=== PATIENT | male | born 1955 | race Caucasian/White ===

== ENCOUNTER 2019-01-25 05:27 | Observation (INO) | payer BC ==
[~2019-01-25 05:27] MED LIST: Buffered Lidocaine 1% SYRIN* 1 ML/SYRINGE INTRADERM ONE
[2019-01-25] MEDS ORDERED: Sodium Citrate/Citric Acid* 15 ML UDC ONE (05:47)
[2019-01-25] MEDS ORDERED: ceFAZolin 1 GM in Dextrose (*) 1 GM/50 ML BAG IVPB ONE (05:47)
[2019-01-25] MEDS ORDERED: ceFAZolin 2 GM PREMIX in ORs 0 GM/0 ML BAG IVPB ONE (05:47)
[2019-01-25] MEDS ORDERED: Lactated Ringers 1000 ML Bag* 1,000 ML IV SCH ×2 (06:00→14:00)
[2019-01-25] MEDS ORDERED: Sodium Citrate/Citric Acid* 15 ML UDC PO ONE (06:00)
[2019-01-25 06:33] LABS: INR 1.06 (0.82-1.09)
[2019-01-25] MEDS ORDERED: Lidocaine 1% MPF wEPI 200,000* 30 ML SDV ONE (06:39)
[2019-01-25] MEDS ORDERED: Bacitracin INJECTION* 50,000 UNITS ONE ×2 (06:40→11:50)
[2019-01-25] MEDS ORDERED: Thrombin 5,000 UNITS* 1 APPLIC KIT - topical use - TOPICAL ONE (06:40)
[2019-01-25] MEDS ORDERED: fentaNYL* 50 MCG/ML 5 ML VIAL (250 MCG VIAL) ONE (07:21)
[2019-01-25] MEDS ORDERED: Lidocaine 2% PF * 5 ML VIAL ONE (07:21)
[2019-01-25] MEDS ORDERED: Propofol* 10 MG/ML 20 ML BTL ONE ×2 (07:21→08:26)
[2019-01-25] MEDS ORDERED: Rocuronium* 10 MG/ML VIAL ONE ×3 (07:21→10:49)
[2019-01-25] MEDS ORDERED: KETAMINE HCL* 50 MG/ML 10 ML VIAL ONE (08:44)
[2019-01-25] MEDS ORDERED: DiMENhydriNATE IV* 50 MG/ML VIAL IV PUSH PRN (09:01)
[2019-01-25] MEDS ORDERED: Acetaminophen IV 1GM/100ML * 1,000 MG/100 ML VIAL IVPB ONE (09:01)
[2019-01-25] MEDS ORDERED: Naloxone* 0.4 MG/ML 1 ML VIAL IV PRN (09:01)
[2019-01-25] MEDS ORDERED: fentaNYL* 50 MCG/ML 2 ML VIAL (100 MCG VIAL) IV PRN (09:01)
[2019-01-25] MEDS ORDERED: Sugammadex * 500 MG/5 ML VIAL IV PUSH ONE (12:20)
[2019-01-25] MEDS ORDERED: Ondansetron INJ* 2 MG/ML VIAL ONE (12:31)
[2019-01-25] MEDS ORDERED: ceFAZolin 2 GM PREMIX in ORs 2 GM/50 ML BAG IVPB ONE (13:02)
[2019-01-25] MEDS ORDERED: ceFAZolin 1 GM ADVAN(*) 1 GM ADDV.VIAL IVPB ONE (13:03)
[2019-01-25] MEDS ORDERED: ceFAZolin VIAL(*) VIAL ONE (13:08)
[2019-01-25] MEDS ORDERED: Magnesium Hydroxide LIQ* 30 ML UDC PO PRN (13:28)
[2019-01-25] MEDS ORDERED: Ondansetron INJ* 2 MG/ML VIAL IV PRN (13:28)
[2019-01-25] MEDS ORDERED: Diazepam TAB(*) 10 MG PO PRN (13:30)
[2019-01-25] MEDS ORDERED: Acetaminophen IV 1GM/100ML * 100 ML ONE (13:39)
[2019-01-25] MEDS: HYDROcodone/ACETAMIN 5-325 MG* 1 TAB PO PRN (16:12)
[2019-01-25] MEDS ORDERED: Acetaminophen TAB* 325 MG PO PRN (18:13)
--- NOTE | 2019-01-25 18:23 | OP ---
OPERATIVE REPORT: DATE OF OPERATION: 01/25/19 - Inpatient, room 353-01 DATE OF : 55 SURGEON: Khloe Maldonado MD HOME HEALTH BILLING SPECIALIST: MAREN Bean. The case was done with the assistance of a surgical PA because of the complexity of the case. ANESTHESIOLOGIST: Cirilo Roland DO ANESTHESIA: General. PRE-OP DIAGNOSIS: Degenerative disk disease and severe lumbar stenosis at L2 to S1. POST-OP DIAGNOSIS: Degenerative disk disease and severe lumbar stenosis at L2 to S1. OPERATIVE PROCEDURE: The patient underwent right-sided approach ipsi- contralateral laminectomies at L2-3, L3-4, L4-5 and L5-S1 with multilevel foraminotomies. ESTIMATED BLOOD LOSS: 100 cc. COMPLICATIONS: None. SUMMARY: The patient is a very pleasant 63-year-old gentleman with complaints of back pain radiating to the right lower extremity with neurogenic claudication with MRI findings consistent with multilevel degenerative disk disease and severe stenosis. He was offered the option of surgical intervention after failing conservative treatments. After explaining the expectations, limitations, possible complications of the procedure to the patient with complications including but not limited to bleeding, infection, risk of injury to adjacent structures, coma, paralysis, , need for additional procedures, anesthesia risks, stroke, blindness, cancer, instability , adjacent level disease, pseudoarthrosis, spinal fluid leak, hematoma formation , loss of bladder or bowel control, the patient was agreeable to proceed with surgery and informed consent was obtained. The patient understood that his condition may not improve and in fact may get worse after surgery and that he may need to have additional procedures in the future. He also understood that he may need a stabilization procedure if he develops any instability. The patient understood that operative plan may be modified according to intraoperative findings and conditions. He also understood that the procedure may be abandoned or done in more than one stages and that he may require prolonged ICU stay and prolonged hospitalization and prolonged rehabilitation. DESCRIPTION OF PROCEDURE: The patient was brought to the operating room and was placed under general anesthesia by the anesthesia team. He was carefully positioned prone on a Robin frame on a Marko table and all bony prominences were meticulously padded. His skin was prepped and draped in the standard fashion. After appropriate surgical pause and patient identification, a midline incision was marked over the L2 to S1 level with the assistance of intraoperative fluoroscopic imaging. The incision site was infiltrated with local anesthetic and #10 surgical blade was used to incise the skin. The incision was carried down to the dorsal fascia with Bovie cautery and self- retaining retractor was introduced further into the field. The dorsal fascia was divided in the right side over the midline with the use of Bovie cautery and the paraspinal musculature was elevated on the right side with the use of periosteal elevators and Bovie cautery. The incision was carried down to the lamina. The lamina and the right-sided facets were gently exposed paying attention not to disrupt the facet capsules. Self-retaining retractor was introduced further into the field and under microscopic magnification and after confirmation of appropriate surgical levels with intraoperative fluoroscopic imaging, laminectomies were performed at L5, L4, L3 and to the lower part of L2. High-speed drill was used as well as Kerrison punches. Ligamentum flavum was then gently removed and then right-sided foraminotomies were performed in all levels as well as left-sided foraminotomies. At the end of the procedure, the thecal sac as well as the nerve roots were found to be free of any pressure phenomenon. Significant amount of hypertrophied ligamentum flavum was encountered throughout the decompressive laminectomies levels. After confirmation of meticulous hemostasis and copious irrigation, and after meticulous inspection, the self-retaining retractor was removed from the field and the wound was closed over Ajay drain which was tunneled through a separate stab wound incision. A 0 interrupted Vicryl sutures were all used to approximate dorsal fascia while the subcutaneous tissue was approximated with 2- 0 inverted interrupted Vicryl suture. The skin was approximated with Dermabond. At the end of the procedure, all counts were reported to be correct. The patient remained hemodynamically stable throughout the case. The case was done with the assistance of a surgical PA because of the complexity of the case. I was present and scrubbed for the entirety of the case. [id number]/[facility] #: [id number] LORI
[2019-01-25] MEDS ORDERED: LORazepam TAB(*) 1 MG PO SCH (19:00)
--- NOTE | 2019-01-25 19:05 | CONS ---
CC: Dr. South; Dr. Maldonado* CONSULTATION REPORT: DATE OF CONSULT: 01/25/19 PRIMARY CARE PROVIDER: Dr. South. REASON FOR CONSULT: Evaluation of this patient for possibility of alcohol withdrawal in the future. CHIEF COMPLAINT: Back pain. HISTORY OF PRESENT ILLNESS: Ramiro Bunch is a 63-year-old male with history of chronic alcohol use, who is status post decompressive lumbar laminectomy performed by Dr. Maldonado. The patient stated that he never had gone through alcohol withdrawal before, but he has drank approximately 4 shots of heavy liquor a day for most of his life. He started drinking alcohol when he was 15 years old. He also has a history of hypertension. A request for consult postoperatively was placed to medicine service to evaluate for possibility of withdrawal in the future. PAST MEDICAL HISTORY: 1. History of lumbar stenosis as mentioned above. 2. History of hypertension. 3. History of depression. 4. History of anxiety. 5. Obstructive sleep apnea. The patient has not used his CPAP for the past 2 years. PAST SURGICAL HISTORY: 1. Status post right knee surgery in 2015. 2. 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 MEDICATIONS: Include: 1. Zoloft 100 mg daily. 2. OmegaXL twice daily for joint pain. 3. Amlodipine 5 mg daily. 4. Mag-Ox 400 mg 1 to 4 tablets a night for sleep. 5. Aleve 220 mg on a p.r.n. basis. 6. Lisinopril 40 mg daily. 7. Diazepam 10 mg up to 3 times a day for anxiety. ALLERGIES: No known drug allergies. FAMILY HISTORY: Positive for father with emphysema, prostate cancer, who at the age of 78 due to emphysema. Mother with history of pacemaker placement and COPD, due to stroke at the age of 78. SOCIAL HISTORY: The patient is . He denies any tobacco or drug use. He has drank alcohol ever since he turned 15. He never went through withdrawal and never needed to go to rehab. He drinks approximately 1.7 L of whiskey a week. REVIEW OF SYSTEMS: Please see history of present illness. The patient complains of mild postoperative pain in the lumbar region, otherwise unremarkable. Prior to the surgery, the patient stated that he has had problems with not being able to ambulate past several steps, all of a sudden his legs would get weak and he would have to hold onto something. I believe it is consistent with neurogenic claudication. PHYSICAL EXAM: Blood pressure of 131/40, heart rate of 82 and regular, respiratory rate 16, oxygen saturation 95% on room air, temperature 97.4. General: The patient is a very pleasant 63-year-old male, who is in no acute distress. Alert, awake, and oriented x3. HEENT: Head: Atraumatic, normocephalic. Eyes: Pupils are equal, reactive to light and accommodation. Oropharynx is clear. Mucosa moist. Neck: Supple. No JVD. No bruits bilaterally. Cardiovascular: Regular rate and rhythm. No murmur. Respiratory : Clear to auscultation bilaterally. Abdomen: Soft, nontender. Bowel sounds are present in all 4 quadrants. On evaluation of the back, the patient has his midline lumbar incision covered with postoperative dressings that were not removed. There is no evidence of surrounding hematoma or skin infection. Neuro Evaluation: Speech is clear. Cranial nerves II through XII are grossly intact. Motor strength is 5/5 bilaterally. Psychiatric Evaluation: Oriented x3 with no evidence of anxiety or depression. LABORATORY DATA: None. ASSESSMENT AND PLAN: 1. In regards to the patient's possibility of alcohol withdrawal, his last drink was 4 days ago. It is possible that he is going to go through withdrawal. He is going to be placed on alcohol withdrawal protocol with Ativan. I will also place the patient on thiamine and folate. 2. In regards to the patient's hypertension, I will recommend continuation of his current medications. Thank you very much for allowing our service to see your patient in consultation. We will sign off for now and we will see the patient on an as- needed basis. TIME SPENT: Approximately 55 minutes was spent on the patient's consultation. [id number]/[facility] #: [id number] LORI
[2019-01-26] MEDS: HYDROcodone/ACETAMIN 5-325 MG* 1 TAB PO PRN ×4 (06:46→23:23)
--- NOTE | 2019-01-26 09:06 | PN ---
Progress Note - Progress Note Date of Service: 01/26/19 SOAP: Subjective: 63 y/o male s/p bilateral L2 -S1 decompression POD#1, patient has been stable over night. His radicular pain has improved since, has been ambulating with out any issues. Currently has ALEXA drain that put out 150 ml over night and an additional 50 this morning. Patient reports that his pain has been well controlled and is tolerating oral food and liquids. Patient has no complaints at this time. Objective: Vital Signs - 12 hr Temp Pulse Resp BP Pulse Ox 01/26/19 08:00 95 01/26/19 07:52 98.2 F 72 18 140/67 89 01/26/19 06:46 18 01/26/19 04:42 98.1 F 68 17 139/64 92 01/26/19 02:04 98.5 F 78 16 137/58 91 01/25/19 23:18 98.0 F 79 17 124/54 95 01/25/19 21:15 18 General: Patient comfortable in bed, mood pleasant. Neuro GCS: 15, CN II - XII grossly intact, Senation intact throughout with light touch, Extremity motor strength intact 5/5 in all extremities. Derm. surgical site C/D/I drain ALEXA drain intact. Assessment: 63 y/o male s/p L2- S1 decompression, patient is doing after surgery, drain is significant out put at this time, so not able D/C. Plan: 1) continue monitor and document drain output. 2) Pain control as needed 3) Continue to work with PT/OT 4) D/C melanie.
[2019-01-26] MEDS: Thiamine TAB* 100 MG TAB PO SCH (09:08)
[2019-01-26] MEDS: Folic Acid TAB* 1 MG PO SCH (09:08)
[2019-01-26] MEDS: amLODIPine TAB* 5 MG PO SCH (09:08)
[2019-01-26] MEDS: Lisinopril TAB* 10 MG PO SCH (09:08)
[2019-01-26] MEDS: Multivitamins/Minerals TAB PO SCH (09:08)
[2019-01-26] MEDS: Sertraline* 100 MG TAB PO SCH (09:08)
[2019-01-27] MEDS: HYDROcodone/ACETAMIN 5-325 MG* 1 TAB PO PRN ×3 (04:44→13:47)
[2019-01-27] MEDS: Thiamine TAB* 100 MG TAB PO SCH (08:53)
[2019-01-27] MEDS: Multivitamins/Minerals TAB PO SCH (08:53)
[2019-01-27] MEDS: Sertraline* 100 MG TAB PO SCH (08:53)
[2019-01-27] MEDS: Lisinopril TAB* 10 MG PO SCH (08:53)
[2019-01-27] MEDS: Folic Acid TAB* 1 MG PO SCH (08:54)
[2019-01-27] MEDS: amLODIPine TAB* 5 MG PO SCH (08:54)
--- NOTE | 2019-01-27 09:20 | PN ---
Progress Note - Progress Note Date of Service: 01/27/19 SOAP: Subjective: [S/p lumbar decompression, POD #2 Feeling well this morning. Was able to get restful sleep last night Ambulating independently without difficulty Pain well controlled with PO medication Denies headache, nausea Eating and drinking well ] Objective: [ Vital Signs: Temp Pulse Resp BP Pulse Ox 98.0 F 68 16 124/54 90 01/27/19 07:24 01/27/19 07:24 01/27/19 08:54 01/27/19 07:24 01/27/19 07:24 General: Sitting up in chair, NAD Neuro: Motor and sensory intact Incision: Intact, no swelling. Mild ecchymosis at drain site. Drain continues to function well and is left in place. Wound drain output 01/25/19 01/26/19 01/26/19 21:10 02:08 08:17 Output, ALEXA #1 100 30 50 01/26/19 01/26/19 01/26/19 12:00 14:00 19:06 Output, ALEXA #1 50 10 30 01/26/19 01/27/19 23:15 05:22 Output, ALEXA #1 20 20 Laboratory Tests 01/25/19 06:00 INR (Anticoag Therapy) 1.06 ] Assessment: [Satisfactory post-op. Drain continues to collect large volume, requires further monitoring. ] Plan: [1.Continue to monitor drain output 2. Likely DC home tomorrow 3. Labs ordered]
[2019-01-27 11:04] LABS: Hematocrit 39 % (42-52); Hemoglobin 12.8 g/dL (14.0-18.0); Mean Corpuscular HGB Conc 33 g/dL (31-36); Mean Corpuscular Hemoglobin 34 pg (27-31); Mean Corpuscular Volume 104 fL (80-94); Mean Platelet Volume 10.7 fL (7.4-10.4); Platelet Count 156 10^3/uL (150-450); Red Blood Count 3.72 10^6 /uL (4.18-5.48); Red Cell Distribution Width 14 % (10.5-15); White Blood Count 15.9 10^3/uL (3.5-10.8)
[2019-01-27 11:09] LABS: INR 1.28 (0.82-1.09)
[2019-01-27 11:38] LABS: ABS Basophils 0.1 10^3/ul (0-0.2); ABS Eosinophils 0.1 10^3/ul (0-0.6); ABS Monocytes 3.4 10^3/ul (0-0.8); ABS Neutrophils 9.4 10^3/ul (1.5-7.7); Eosinophil % 0.4 %; Large Platelets Present; Lymphocyte % 18.6 %; Nucleated Red Blood Cells % 0.1
[2019-01-27 11:44] VITALS: BP 108/48
== END 2019-01-27 16:20 | disposition home or self-care (01) ==
LOC: OR 05:27 → UNDOADMOB 13:28 → SSU 13:28 → OBSVTOIN 01-27 10:01 → INTOOBSV 01-27 10:01 → UNDODISOB 01-27 16:20
PROVIDERS: ADMIT Neurological Surgery; ATTEND Neurological Surgery
DX: M51.36 Other intervertebral disc degeneration, lumbar region (principal); M48.061 Spinal stenosis, lumbar region without neurogenic claudication; I10 Essential (primary) hypertension; M54.5 Low back pain; R73.03 Prediabetes; E66.01 Morbid (severe) obesity due to excess calories; F43.21 Adjustment disorder with depressed mood; R73.01 Impaired fasting glucose
CPT/HCPCS: 36415; 76000; 85025; 85610; 96365; 96366; 96375; A9270-GY; G0378; J0690; J2001; J2405; J2704; J3010

== ENCOUNTER 2019-01-28 00:08 | Observation (INO) | payer BC ==
--- OUTSIDE RECORDS SUMMARY | 2019-01-28 00:31 | XMS REPORT | Continuity of Care Document ---
:1955 External Reference #:[id number] Author Name Mara Hilliard Care Team Providers Name Role Phone HCP/LW on file Primary Care Physician Unavailable Payers Date Identification Numbers Payment Provider Subscriber Effective: Policy Number: [id number] [facility] Ind/Ppo/Hmo/Pos Ramiro Bunch 2017 Group Name: Gage Vidal [address] [address] PayID: [id number] [id number] Advance Directives Description No Information Available Problems Active Problems Provider Date Essential hypertension Juan Chun M.D. Onset: 07/22/2015 Adjustment disorder with depressed mood Juan Cuhn M.D. Onset: 02/01 Note: divorce and of mo Overweight Juan Chun M.D. Onset: 02/02/2016 Generalized anxiety disorder Juan Chun M.D. Onset: 11/11/2016 Sleep apnea Juan Chun M.D. Onset: 11/11/2016 Posttraumatic stress disorder [facility] D.O. 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O. Tablets [place] XL twice daily for Unknown 01/03/2019 joint pain Amlodipine Besylate take 1 tablet by 90tabs I10 [facility], 02/08/2018 mouth once daily D.O. 5mg Tablets for high blood pressure Magox 400 1-4 tablets every 360tabs [facility] [place], 01/02/2018 night at bedtime D.O. 400(241.3mg) mg as directed Tablets Aleve as directed, as Unknown 01/01/2018 220mg Tablets needed Lisinopril take one tablet 90tabs [facility] [place], 02/01/2016 40mg by mouth every D.O. Tablets morning for high blood pressure Diazepam take 1 tablet by 90tabs F41.1 [facility], 02/01/2016 10mg Tablets mouth 3 To 4 D.O. Times Daily if needed History Medications Metoprolol Tartrate take 1 tablet by 90tabs I10 Theron Carrillo, 2017 - mouth every M.D. 02/08/2018 25mg Tablets morning Magox 400 1-4 tablets 360tabs [facility] [place], 06/29/2017 - 400(241.3mg) every night at D.O. 01/01/2018 mg Tablets bedtime as directed Triamcinolone apply to 30gm L91.8 Juan Hansen 05/03/2016 - Acetonide affected area Bryce Chun 06/22/2017 0.5% Cream three times a day only if needed Imiquimod apply to Unknown 05/02/2016 - 5% Cream affected area 05/03/2016 every other day leave on 6-10 hours Oxycodone-Acetaminoph 1-2 every 4 Unknown 02/01/2016 - en hours as needed 05/02/2016 5-325mg Tablets severe pain code d Sertraline HCL take 1 tablet by janelle RichardsNii luo, 02/01/2016 - 50mg mouth once daily D.O. 01/04/2019 Tablets Immunizations CPT Code Status Date Vaccine Lot # [id number] Given 03/13/2018 Shingrix Zoster (Shingles) Vaccine (HZV) [id number] Recomb,Subnit,Adjuvanted 07372 Given 01/02/2018 Shingrix Zoster (Shingles) Vaccine (HZV) [id number] Recomb,Subnit,Adjuvanted 48380 Given 06/23/2017 Influenza Virus Vaccine, Quadrivalent, Split, [id number] Preservative Free 23658 Given 08/03/2016 Influenza Virus Vaccine, Quadrivalent, Split, [id number] Preservative Free 54439 Given 12/22/2011 Tetanus diptheria Immunization Vital Signs Date Vital Result Comment 01/04/2019 2:31pm BP Systolic 128 mmHg BP Diastolic 80 mmHg Heart Rate 70 /min O2 % BldC Oximetry 95 % Body Temperature 98.1 F Height 69 inches 5'9" Weight 331.00 lb BMI (Body Mass Index) 48.9 kg/m2 03/13/2018 1:48pm Weight 336.00 lb 02/08/2018 2:22pm BP Systolic 138 mmHg thigh cuff BP Diastolic 84 mmHg thigh cuff Height 69 inches 5'9" Weight 339.00 lb BMI (Body Mass Index) 50.1 kg/m2 01/02/2018 11:20am BP Systolic 140 mmHg BP Diastolic 80 mmHg Weight 339.00 lb w/sneakers 09/23/2017 4:34pm BP Systolic 155 mmHg BP Diastolic 98 mmHg Weight 336.00 lb with boots 06/23/2017 10:07am BP Systolic 152 mmHg BP Diastolic 90 mmHg Height 69 inches 5'9" Weight 326.00 lb BMI (Body Mass Index) 48.1 kg/m2 02/21/2017 11:14am BP Systolic 140 mmHg BP Diastolic 84 mmHg Heart Rate 70 /min rrr Respiratory Rate 16 /min Weight 320.00 lb 11/11/2016 1:14pm BP Systolic 150 mmHg BP Diastolic 92 mmHg Heart Rate 80 /min Respiratory Rate 16 /min Weight 304.00 lb 08/03/2016 1:40pm BP Systolic 138 mmHg BP Diastolic 95 mmHg Height 69.5 inches 5'9.50" with shoes Weight 325.00 lb with shoes BMI (Body Mass Index) 47.3 kg/m2 05/03/2016 10:10am BP Systolic 132 mmHg BP Diastolic 72 mmHg Heart Rate 80 /min Weight 320.00 lb 02/02/2016 3:32pm BP Systolic 138 mmHg BP Diastolic 82 mmHg Height 69.5 inches 5'9.50" Weight 314.00 lb with flip flops BMI (Body Mass Index) 45.7 kg/m2 Results Test Date Facility Test Result H/L Range Note Laboratory test 01/04/2019 In House Hemoglobin A1c 6.0 finding Laboratory test 12/15/2018 [facility] PSA Diagnostic 0.675 ng/mL N 0- 4.0 finding [phone] Creatinine 12/15/2018 [facility] Creatinine 0.87 mg/dL N 0.67-1.17 [phone] Egfr Non- 88.6 >60 Egfr 107.2 >60 1 Laboratory test 12/15/2018 [facility] Blood Urea 25 mg/dL High 6-24 finding [phone] Nitrogen BUN Laboratory test 02/08/2018 [facility] Magnesium 1.9 mg/dL N 1.9-2.7 finding [phone] Comp Metabolic 02/08/2018 [facility] Sodium 136 mmol/L Low 139-145 Panel [phone] Chloride 102 mmol/L N 101-111 Co2 Carbon Dioxide 29 mmol/L N 22-32 Glucose 106 mg/dL High 70-100 Blood Urea Nitrogen 18 mg/dL N 6-24 Creatinine 0.96 mg/dL N 0.67-1.17 BUN/Creatinine Ratio 18.8 N 8-20 Calcium 9.4 mg/dL N 8.6-10.3 Total Protein 7.2 g/dL N 6.4-8.9 Albumin 4.0 g/dL N 3.2-5.2 Globulin 3.2 g/dL N 2-4 Albumin/Globulin Ratio 1.3 N 1-3 Total Bilirubin 0.50 mg/dL N 0.2-1.0 Alkaline Phosphatase 92 U/L N 34-104 Alt 113 U/L High 7-52 Ast 137 U/L High 13-39 Egfr Non- 79.4 >60 Egfr 102.1 >60 2 Potassium 5.4 mmol/L High 3.5-5.0 Anion Gap 5 mmol/L N 2-11 Laboratory test 01/02/2018 [facility] Magnesium 1.8 mg/dL Low 1.9- 2.7 3 finding [phone] CBC Auto Diff 01/02/2018 [facility] White Blood 6.3 10^3/uL N 3.5- 10.8 [phone] Count Red Blood Count 4.23 10^6/uL N 4.0-5.4 Hemoglobin 15.1 g/dL N 14.0-18.0 Hematocrit 44 % N 42-52 Mean Corpuscular Volume 105 fL High 80-94 Mean Corpuscular Hemoglobin 36 pg High 27-31 Mean Corpuscular HGB Conc 34 g/dL N 31-36 Red Cell Distribution Width 15 % N 10.5-15 Platelet Count 181 10^3/uL N 150-450 Mean Platelet Volume 11.1 um3 High 7.4-10.4 Large Platelets Present Abs Neutrophils 2.9 10^3/uL N 1.5-7.7 Abs Lymphocytes 2.1 10^3/uL N 1.0-4.8 Abs Monocytes 1.0 10^3/uL High 0-0.8 Abs Eosinophils 0.2 10^3/uL N 0-0.6 Abs Basophils 0 10^3/uL N 0-0.2 Abs Nucleated RBC 0 10^3/uL Granulocyte % 46.3 % N 38-83 Lymphocyte % 33.0 % N 25-47 Monocyte % 16.5 % High 0-7 Eosinophil % 3.8 % N 0-6 Basophil % 0.4 % N 0-2 Nucleated Red Blood Cells % 0.1 Comp Metabolic Panel 01/02/2018 [facility] Sodium 137 mmol/L Low 139- 145 [phone] Chloride 102 mmol/L N 101-111 Co2 Carbon Dioxide 28 mmol/L N 22-32 Glucose 130 mg/dL High 70-100 Blood Urea Nitrogen 14 mg/dL N 6-24 Creatinine 1.03 mg/dL N 0.67-1.17 BUN/Creatinine Ratio 13.6 N 8-20 Calcium 9.2 mg/dL N 8.6-10.3 Total Protein 7.3 g/dL N 6.4-8.9 Albumin 4.1 g/dL N 3.2-5.2 Globulin 3.2 g/dL N 2-4 Albumin/Globulin Ratio 1.3 N 1-3 Total Bilirubin 0.40 mg/dL N 0.2-1.0 Alkaline Phosphatase 93 U/L N 34-104 Alt 116 U/L High 7-52 Ast 135 U/L High 13-39 Egfr Non- 73.2 >60 Egfr 94.1 >60 4 Potassium 5.4 mmol/L High 3.5-5.0 Anion Gap 7 mmol/L N 2-11 Laboratory test 01/02/2018 [facility] TSH (Thyroid Stim 2.65 mcIU/mL N 0.34-5.60 5 finding [phone] Horm) Lipid Profile 01/02/2018 [facility] Triglycerides 163 mg/dL 6 (Trig/Chol/HDL) [phone] Cholesterol 277 mg/dL 7 HDL Cholesterol 52.5 mg/dL 8 LDL Cholesterol 192 mg/dL 9 Laboratory test 01/02/2018 [facility] Vitamin B12 661 pg/mL N 180- 375 10 finding [phone] Cell Morphology 01/02/2018 [facility] Macrocytosis 1+ [phone] Laboratory test 09/23/2017 In House Hemoglobin A1c 6.0 finding Glucose Quantitative 97 Cell Morphology 06/23/2017 [facility] Platelet Morphology Large N [phone] Macrocytosis 1+ N Laboratory test 06/23/2017 [facility] TSH (Thyroid 2.78 mcIU/mL N 0.34-5.60 finding [phone] Stim Horm) Vitamin B12 457 pg/mL N 180-657 11 Vitamin D Total 25(Oh) 32.9 ng/mL N 20-50 Comp Metabolic Panel 06/23/2017 [facility] Sodium 139 mmol/L N 133- 145 [phone] Potassium 4.2 mmol/L N 3.5-5.0 Chloride 107 mmol/L N 101-111 Co2 Carbon Dioxide 26 mmol/L N 22-32 Anion Gap 6 mmol/L N 2-11 Glucose 123 mg/dL High 70-100 Blood Urea Nitrogen 12 mg/dL N 6-24 Creatinine 0.79 mg/dL N 0.67-1.17 BUN/Creatinine Ratio 15.2 N 8-20 Calcium 8.7 mg/dL N 8.6-10.3 Total Protein 6.6 g/dL N 6.4-8.9 Albumin 3.7 g/dL N 3.2-5.2 Globulin 2.9 g/dL N 2-4 Albumin/Globulin Ratio 1.3 N 1-3 Total Bilirubin 0.30 mg/dL N 0.2-1.0 Alkaline Phosphatase 82 U/L N 34-104 Alt 57 U/L High 7-52 Ast 69 U/L High 13-39 Egfr Non- 99.7 N >60 Egfr 128.2 N >60 12 CBC Auto Diff 06/23/2017 [facility] White Blood Count 6.3 10^3/uL N 3.5-10.8 [phone] Red Blood Count 3.87 10^6/uL Low 4.0-5.4 Hemoglobin 13.7 g/dL Low 14.0-18.0 Hematocrit 41 % Low 42-52 Mean Corpuscular Volume 107 fL High 80-94 Mean Corpuscular Hemoglobin 36 pg High 27-31 Mean Corpuscular HGB Conc 33 g/dL N 31-36 Red Cell Distribution Width 14 % N 10.5-15 Platelet Count 229 10^3/uL N 150-450 Mean Platelet Volume 10 um3 N 7.4-10.4 Abs Neutrophils 2.6 10^3/uL N 1.5-7.7 Abs Lymphocytes 2.1 10^3/uL N 1.0-4.8 Abs Monocytes 1.3 10^3/uL High 0-0.8 Abs Eosinophils 0.2 10^3/uL N 0-0.6 Abs Basophils 0.1 10^3/uL N 0-0.2 Abs Nucleated RBC 0.01 10^3/uL N Granulocyte % 41.3 % N 38-83 Lymphocyte % 33.1 % N 25-47 Monocyte % 20.2 % High 1-9 Eosinophil % 3.3 % N 0-6 Basophil % 2.1 % High 0-2 Nucleated Red Blood Cells % 0.1 N Laboratory test finding 06/23/2017 [facility] Magnesium 1.7 mg/dL Low 1.9-2.7 [phone] Urine Micro Inhouse 02/21/2017 In House Ua WBC - 13 Ua RBC - Ua Casts - Ua Epi 0-1 Ua Other - Ua Glucose - Ua Bilirubin - Ua Ketones - Ua Specific Pella 1.010 Ua Blood - Ua PH 6.0 Ua Protein - Ua Urobilinogen - Ua Nitrite - Ua Leukocytes - 1 Because ethnic data is not always readily available, this report includes an eGFR for both -Americans and non- Americans. The National Kidney Disease Education Program (NKDEP) does not endorse the use of the MDRD equation for patients that are not between the ages of 18 and 70, are , have extremes of body size, muscle mass, or nutritional status, or are non- or non-. According to the National Kidney Foundation, irrespective of diagnosis, the stage of the disease is based on the level of kidney function: Stage Description GFR(mL/min/1.73 m(2)) 1 Kidney damage with normal or decreased GFR 90 2 Kidney damage with mild decrease in GFR 60-89 3 Moderate decrease in GFR 30-59 4 Severe decrease in GFR 15-29 5 Kidney failure <15 (or dialysis) 2 Because ethnic data is not always readily available, this report includes an eGFR for both -Americans and non- Americans. The National Kidney Disease Education Program (NKDEP) does not endorse the use of the MDRD equation for patients that are not between the ages of 18 and 70, are , have extremes of body size, muscle mass, or nutritional status, or are non- or non-. According to the National Kidney Foundation, irrespective of diagnosis, the stage of the disease is based on the level of kidney function: Stage Description GFR(mL/min/1.73 m(2)) 1 Kidney damage with normal or decreased GFR 90 2 Kidney damage with mild decrease in GFR 60-89 3 Moderate decrease in GFR 30-59 4 Severe decrease in GFR 15-29 5 Kidney failure <15 (or dialysis) 3 FASTING 12 HOUR 4 Because ethnic data is not always readily available, this report includes an eGFR for both -Americans and non- Americans. The National Kidney Disease Education Program (NKDEP) does not endorse the use of the MDRD equation for patients that are not between the ages of 18 and 70, are , have extremes of body size, muscle mass, or nutritional status, or are non- or non-. According to the National Kidney Foundation, irrespective of diagnosis, the stage of the disease is based on the level of kidney function: Stage Description GFR(mL/min/1.73 m(2)) 1 Kidney damage with normal or decreased GFR 90 2 Kidney damage with mild decrease in GFR 60-89 3 Moderate decrease in GFR 30-59 4 Severe decrease in GFR 15-29 5 Kidney failure <15 (or dialysis) 5 FASTING 12 HOUR 6 Desirable: <150 Borderline High: 150-199 High: 200-499 Very High: >500 7 Desirable: <200 Borderline High: 200-239 High: >239 8 Low: <40 Desirable: 40-60 High: >60 9 Desirable: <100 Near Optimal: 100-129 Borderline High: 130-159 High: 160-189 Very High: >189 10 Normal Range 180 to 914 Indeterminate Range 145 to 180 Deficient Range <145 11 Normal Range 180 to 914 Indeterminate Range 145 to 180 Deficient Range <145 12 Because ethnic data is not always readily available, this report includes an eGFR for both -Americans and non- Americans. The National Kidney Disease Education Program (NKDEP) does not endorse the use of the MDRD equation for patients that are not between the ages of 18 and 70, are , have extremes of body size, muscle mass, or nutritional status, or are non- or non-. According to the National Kidney Foundation, irrespective of diagnosis, the stage of the disease is based on the level of kidney function: Stage Description GFR(mL/min/1.73 m(2)) 1 Kidney damage with normal or decreased GFR 90 2 Kidney damage with mild decrease in GFR 60-89 3 Moderate decrease in GFR 30-59 4 Severe decrease in GFR 15-29 5 Kidney failure <15 (or dialysis) 13 void, clear, gold Procedures Date Code Description Status 01/04/2019 64957 Electrocardiogram Complete Completed 09/19/2014 [id number] Colonoscopy Completed Encounters Type Date Location Provider Dx Diagnosis Office Visit 01/04/2019 Main Office [facility] [place], I10 Essential (primary ) 2:30p D.O. hypertension M54.5 Low back pain R73.03 Prediabetes E66.01 Morbid (severe) obesity due to excess calories F41.1 Generalized anxiety disorder Z01.818 Encounter for other preprocedural examination F43.12 Post-traumatic stress disorder, chronic F43.21 Adjustment disorder with depressed mood R73.01 Impaired fasting glucose Z63.79 Other stressful life events affecting family and household Office Visit 02/08/2018 2:15p Main Office [facility] [place], I10 Essential ( primary) D.O. hypertension M54.5 Low back pain E66.01 Morbid (severe) obesity due to excess calories F41.1 Generalized anxiety disorder R73.03 Prediabetes Z68.43 Body mass index (BMI) 50-59.9 , adult Office Visit 01/02/2018 11:00a Main Office [facility] [place], I10 Essential ( primary) D.O. hypertension M54.5 Low back pain E66.01 Morbid (severe) obesity due to excess calories F41.1 Generalized anxiety disorder F43.12 Post-traumatic stress disorder, chronic F43.21 Adjustment disorder with depressed mood R73.03 Prediabetes Z23 Encounter for immunization Z41.8 Encntr for oth proc for purpose oth than [facility] Z68.42 Body mass index (BMI) 45.0-49.9, adult Office Visit 09/23/2017 4:20p Main Office Thor Modi M54.5 Low back pain I10 Essential (primary) hypertension R73.01 Impaired fasting glucose R73.03 Prediabetes Z63.79 Other stressful life events affecting family and household Z79.899 Other fdc (current) drug therapy Office Visit 06/23/2017 10:00a Main Office [place] [place], R23.8 Other skin D.O. changes I10 Essential (primary) hypertension E66.3 Overweight F41.1 Generalized anxiety disorder F43.12 Post-traumatic stress disorder, chronic Z41.8 Encntr for oth proc for purpose oth than [facility] Z23 Encounter for immunization Z68.42 Body mass index (BMI) 45.0-49.9, adult Office Visit 02/21/2017 11:15a Main Office Juan Hansen I10 Essential ( primary) Bryce Chun hypertension E66.3 Overweight L91.8 Other hypertrophic disorders of the skin F41.1 Generalized anxiety disorder Z68.41 Body mass index (BMI) 40.0-44.9, adult Office Visit 11/11/2016 1:05p Main Office Juan Chun M.D. E66.3 Overweight F41.1 Generalized anxiety disorder I10 Essential (primary) hypertension G47.36 Sleep related hypoventilation in conditions classd elswhr N40.0 Benign prostatic hyperplasia without lower urinry tract symp Z68.41 Body mass index (BMI) 40.0-44.9, adult Office Visit 08/03/2016 1:30p Main Office Juan Chun M.D. E66.3 Overweight Z68.41 Body mass index (BMI) 40.0-44.9, adult F41.1 Generalized anxiety disorder I10 Essential (primary) hypertension Z23 Encounter for immunization Office Visit 05/03/2016 10:00a Main Office Juan Hansen L91.8 Other hypertrophic Bryce Chun disorders of the skin I10 Essential (primary) hypertension E66.3 Overweight F41.1 Generalized anxiety disorder Z68.42 Body mass index (BMI) 45.0-49.9, adult Office Visit 02/02/2016 3:45p Main Office Juan Chun M.D. E66.3 Overweight I10 Essential (primary) hypertension F43.21 Adjustment disorder with depressed mood Z68.42 Body mass index (BMI) 45.0-49.9, adult Plan of Treatment Future Appointment(s):07/18/2019 2:30 pm - [facility] D.O. at Main [id number]/04/2019 - [facility] [place] D.O.I10 Essential (primary) hypertensionFollow up:6 months recheck HTN, prediabetes, weight lossM54.5 Low back painR73.03 HzywnblgksgK71.01 Morbid (severe) obesity due to excess udulqfthS66.1 Generalized anxiety domprmtgS59.818 Encounter for other preprocedural gaqgkdraypsQ48.12 Post-traumatic stress disorder, dfikhpsA76.21 Adjustment disorder with depressed moodR73.01 Impaired fasting mkdvwzmJ12.79 Other stressful life events affecting family and household
--- OUTSIDE RECORDS SUMMARY | 2019-01-28 00:31 | XMS REPORT | Continuity of Care Document ---
:1955 External Reference #:[id number] Author Name Nii South D.O. Address [address] [place] [id number] Care Team Providers Name Role Phone HCP/LW on file Primary Care Physician Unavailable Payers Date Identification Numbers Payment Provider Subscriber Effective: Policy Number: [id number] [employer] Ind/Ppo/Hmo/Pos Ramiro Becerra Bunch 2017 Group Name: [employer] [address] [address] PayID: [id number] [place] [address] Advance Directives Description No Information Available Problems Active Problems Provider Date Essential hypertension Juan Chun M.D. Onset: 07/22/2015 Adjustment disorder with depressed mood Juan Chun M.D. 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 Tobacco Use Start: Unknown Never Smoked Cigarettes ETOH Use Current Alcohol Use: Whisky - 1.75 Daily liter/week - 60 drinks Recreational Drug Use Never Used Drugs Tobacco Use Start: Unknown Non Smoker Smoking Status Reviewed: 01/04/19 Non Smoker Sun Exposure Does not use sunscreen Contraceptive Methods Vasectomy Age 1st Kendrick 15 Years Old # [facility] Partners 5-10 Allergies, Adverse Reactions, Alerts Description No Known Drug Allergies Medications Active Medications SIG Qnty Indications Ordering Provider Date Sertraline HCL 1 by mouth every 90tabs Nii South, 01/04/2019 100mg day D.O. Tablets [place] XL twice daily for Unknown 01/03/2019 joint [...] pressure Diazepam take 1 tablet by 90tabs Nii South, 02/01/2016 10mg Tablets mouth 3 To 4 D.O. Times Daily if needed maximum daily dose of 4 History Medications Metoprolol Tartrate take 1 tablet [...] d Sertraline HCL take 1 tablet by Nii Wilson, 02/01/2016 - 50mg mouth once daily D.O. 01/04/2019 Tablets Immunizations CPT Code Status Date Vaccine Lot # [id number] Given 03/13/2018 Shingrix Zoster (Shingles) Vaccine (HZV) [id number] Recomb,Subnit,Adjuvanted 25446 Given 01/02/2018 Shingrix Zoster (Shingles) Vaccine (HZV) [id number] Recomb,Subnit,Adjuvanted 41571 Given 06/23/2017 Influenza Virus Vaccine, Quadrivalent, Split, [id number] Preservative Free 37238 Given 08/03/2016 Influenza Virus Vaccine, Quadrivalent, Split, [id number] Preservative Free 47348 Given 12/22/2011 Tetanus diptheria Immunization Vital Signs [...] Date Facility Test Result H/L Range Note Comp Metabolic Panel 01/09/2019 [facility] Sodium 139 mmol/L N 135- 145 [phone] Potassium 4.2 mmol/L N 3.5-5.0 Chloride 105 mmol/L N 101-111 Co2 Carbon Dioxide 28 mmol/L N 22-32 Anion Gap 6 mmol/L N 2-11 Glucose 157 mg/dL High 70-100 Blood Urea Nitrogen 20 mg/dL N 6-24 Creatinine 0.88 mg/dL N 0.67-1.17 BUN/Creatinine Ratio 22.7 High 8-20 Calcium 9.3 mg/dL N 8.6-10.3 Total Protein 6.7 g/dL N 6.4-8.9 Albumin 3.9 g/dL N 3.2-5.2 Globulin 2.8 g/dL N 2-4 Albumin/Globulin Ratio 1.4 N 1-3 Total Bilirubin 0.70 mg/dL N 0.2-1.0 Alkaline Phosphatase 88 U/L N 34-104 Alt 77 U/L High 7-52 Ast 69 U/L High 13-39 Egfr Non- 87.5 >60 Egfr 105.8 >60 1 CBC Auto Diff 01/09/2019 [facility] White Blood Count 7.4 10^3/uL N 3.5-10.8 [phone] Red Blood Count 4.37 10^6/uL N 4.18-5.48 Hemoglobin 15.3 g/dL N 14.0-18.0 Hematocrit 45 % N 36-46 Mean Corpuscular Volume 103 fL High 80-94 Mean Corpuscular Hemoglobin 35 pg High 27-31 Mean Corpuscular HGB Conc 34 g/dL N 31-36 Red Cell Distribution Width 14 % N 10.5-15 Platelet Count 192 10^3/uL N 150-450 Mean Platelet Volume 10.8 fL High 7.4-10.4 Abs Neutrophils 3.2 10^3/uL N 1.5-7.7 Abs Lymphocytes 2.4 10^3/uL N 1.0-4.8 Abs Monocytes 1.4 10^3/uL High 0-0.8 Abs Eosinophils 0.3 10^3/uL N 0-0.6 Abs Basophils 0.1 10^3/uL N 0-0.2 Abs Nucleated RBC 0 10^3/uL Granulocyte % 43.2 % Lymphocyte % 32.9 % Monocyte % 18.6 % Eosinophil % 3.9 % Basophil % 1.4 % Nucleated Red Blood Cells % 0 Laboratory test 01/09/2019 [facility] TSH (Thyroid 2.42 mcIU/mL N 0.34-5.60 finding [phone] Stim Horm) Vitamin B12 346 pg/mL N 180-914 2 Vitamin B1 WB <pending> Magnesium 1.9 mg/dL N 1.9-2.7 Laboratory test 01/04/2019 In House Hemoglobin A1c 6.0 finding Laboratory test 12/15/2018 [facility] Blood Urea 25 mg/dL High 6-24 finding [phone] Nitrogen BUN Creatinine 12/15/2018 [facility] Creatinine 0.87 mg/dL N 0.67-1. [phone] Egfr Non- 88.6 >60 Egfr 107.2 >60 3 Laboratory test 12/15/2018 [facility] PSA Diagnostic 0.675 ng/mL N 0- 4.0 finding [phone] Laboratory test 02/08/2018 [facility] Magnesium 1.9 mg/dL N 1.9-2.7 finding [phone] Comp Metabolic 02/08/2018 [facility] Sodium 136 mmol/L Low 139-145 Panel [phone] Chloride 102 mmol/L N 101-111 Co2 Carbon [...] Egfr Non- 79.4 >60 Egfr 102.1 >60 4 Potassium 5.4 mmol/L High 3.5-5.0 Anion Gap 5 mmol/L N 2-11 Cell Morphology 01/02/2018 [facility] Macrocytosis 1+ [phone] Laboratory test finding 01/02/2018 [facility] Vitamin B12 661 pg/mL N 180-914 5 [phone] Lipid Profile 01/02/2018 [facility] Triglycerides 163 mg/dL 6 (Trig/Chol/HDL) [phone] Cholesterol 277 mg/dL 7 HDL Cholesterol 52.5 mg/dL 8 LDL Cholesterol 192 mg/dL 9 Laboratory test 01/02/2018 [facility] TSH (Thyroid 2.65 mcIU/mL N 0.34-5.60 10 finding [phone] Stim Horm) Comp Metabolic 01/02/2018 [facility] Sodium 137 mmol/L Low 139-145 Panel [phone] Chloride 102 mmol/L N 101-111 Co2 Carbon [...] Egfr Non- 73.2 >60 Egfr 94.1 >60 11 Potassium 5.4 mmol/L High 3.5-5.0 Anion Gap 7 mmol/L N 2-11 CBC Auto Diff 01/02/2018 [facility] White Blood Count 6.3 10^3/uL N 3.5-10.8 [phone] Red Blood Count 4.23 10^6/uL N 4.0-5.4 [...] 0-2 Nucleated Red Blood Cells % 0.1 Laboratory test 01/02/2018 [facility] Magnesium 1.8 mg/dL Low 1.9- 2.7 12 finding [phone] Laboratory test 09/23/2017 In House Hemoglobin A1c 6.0 finding Glucose Quantitative 97 Cell Morphology 06/23/2017 [facility] Platelet Morphology Large N [phone] Macrocytosis 1+ N Laboratory test 06/23/2017 [facility] TSH (Thyroid 2.78 mcIU/mL N 0.34-5.60 finding [phone] Stim Horm) Vitamin B12 457 pg/mL N 180-914 13 Vitamin D Total 25(Oh) 32.9 ng/mL N 20-50 Comp Metabolic Panel 06/23/2017 [facility] Sodium 139 mmol/L N 133- 145 [phone] Potassium 4.2 mmol/L N 3.5-5.0 Chloride 107 [...] 99.7 N >60 Egfr 128.2 N >60 14 CBC Auto Diff 06/23/2017 [facility] White Blood Count 6.3 10^3/uL N 3.5-10.8 [phone] Red Blood Count 3.87 10^6/uL Low 4.0-5.4 [...] % 0.1 N Laboratory test finding 06/23/2017 [facility] Magnesium 1.7 mg/dL Low 1.9-2.7 [phone] Urine Micro Inhouse 02/21/2017 In House Ua WBC - 15 Ua RBC - Ua Casts - Ua Epi 0-1 Ua Other - Ua Glucose - Ua Bilirubin - Ua Ketones - Ua Specific [place] 1.010 Ua Blood - Ua PH 6.0 [...] 5 Kidney failure <15 (or dialysis) 2 Normal Range 180 to 914 Indeterminate Range 145 to 180 Deficient Range <145 3 Because ethnic data is not always readily [...] 15-29 5 Kidney failure <15 (or dialysis) 4 Because ethnic data is not always [...] 5 Kidney failure <15 (or dialysis) 5 Normal Range 180 to 914 Indeterminate Range 145 to 180 Deficient Range <145 6 Desirable: <150 Borderline High: 150-199 High: 200-499 Very High: >500 7 Desirable: <200 Borderline High: 200-239 High: >239 8 Low: <40 Desirable: 40-60 High: >60 9 Desirable: <100 Near Optimal: 100-129 Borderline High: 130-159 High: 160-189 Very High: >189 10 FASTING 12 HOUR 11 Because ethnic data is not always readily [...] 15-29 5 Kidney failure <15 (or dialysis) 12 FASTING 12 HOUR 13 Normal Range 180 to 914 Indeterminate Range 145 to 180 Deficient Range <145 14 Because ethnic data is not always readily [...] 15-29 5 Kidney failure <15 (or dialysis) 15 void, clear, gold Procedures Date Code Description Status 01/04/2019 01888 Electrocardiogram Complete Completed 09/19/2014 95058320 Colonoscopy Completed Encounters Type Date Location Provider Dx Diagnosis Office Visit 01/04/2019 Main Office Nii South, I10 Essential (primary ) 2:30p D.O. hypertension M54.5 Low back pain R73.03 Prediabetes E66.01 Morbid (severe) obesity due to excess calories F43.21 Adjustment disorder with depressed mood R73.01 Impaired fasting glucose Z01.818 Encounter for other preprocedural examination Office Visit 02/08/2018 2:15p Main Office Nii [...] events affecting family and household Z79.899 Other moth exterminator (current) drug therapy Office Visit 06/23/2017 10:00a Main Office FlipiraNii luo, R23.8 Other skin D.O. changes I10 Essential (primary) hypertension E66.3 Overweight F41.1 Generalized anxiety disorder F43.12 Post-traumatic stress disorder, chronic Z41.8 Encntr for oth proc for purpose oth than remedy health state Z23 Encounter for immunization Z68.42 Body mass index (BMI) 45.0-49.9, adult Office Visit 02/21/2017 11:15a Main Office Juan Hansen [place] Essential ( primary) Bryce Chun hypertension E66.3 [...] pm - Nii South D.O. at Main Xisvyt2901/04/2019 - Nii South D.O.I10 Essential (primary) hypertensionFollow up:6 months recheck HTN, prediabetes, weight lossM54.5 Low back painR73.03 NtbmdewvbrzL14.01 Morbid (severe) obesity due to excess fuogfhieS34.21 Adjustment disorder with depressed moodR73.01 Impaired fasting gkscjnfJ03.818 Encounter for other preprocedural examinationComments:After reviewing labs, Ramiro has prediabetes and persistent mild elevation in liver enzymes improved since last check, but not normal. He also has some increase in the size of his red blood cells. This can be seen with alcohol use. His reported level of alcohol use would not cause this. He has been reducing alcohol in preparation for the surgery. continuing benzodiazepines for withdrawl preventionmay be indicated perioperatively. Comorbidities include hypertension and obesity. He is cleared for the upcoming surgical procedure.
--- OUTSIDE RECORDS SUMMARY | 2019-01-28 00:31 | XMS REPORT | Continuity of Care Document ---
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 Tobacco Use Start: Unknown Never Smoked Cigarettes ETOH Use Current Alcohol Use: Whisky - 1.75 Daily liter/week - 60 drinks Recreational Drug Use Never Used Drugs Tobacco Use Start: Unknown Non Smoker Smoking Status Reviewed: 01/04/19 Non Smoker Sun Exposure Does not use sunscreen Contraceptive Methods Vasectomy Age 1st [place] 15 Years Old # [facility] [employer] [facility] [facility] 5-10 Allergies, Adverse Reactions, Alerts Description No Known Drug Allergies Medications Active Medications SIG Qnty Indications Ordering Provider Date Sertraline HCL 1 by mouth every 90tabs Nii South, 01/04/2019 100mg day D.O. Tablets [place] XL twice daily for Unknown 01/03/2019 joint [...] CPT Code Status Date Vaccine Lot # [id number] Given 03/13/2018 Shingrix Zoster (Shingles) Vaccine (HZV) [id number] Recomb,Subnit,Adjuvanted 77788 Given 01/02/2018 Shingrix Zoster (Shingles) Vaccine (HZV) [id number] Recomb,Subnit,Adjuvanted 62771 Given 06/23/2017 Influenza Virus Vaccine, Quadrivalent, Split, [id number] Preservative Free 32383 Given 08/03/2016 Influenza Virus Vaccine, Quadrivalent, Split, [id number] Preservative Free 73110 Given 12/22/2011 Tetanus diptheria Immunization Vital Signs [...] Hemoglobin A1c 6.0 finding Laboratory test 12/15/2018 [facility] PSA Diagnostic 0.675 ng/mL N 0- 4.0 finding [phone] Creatinine 12/15/2018 [facility] Creatinine 0.87 mg/dL N 0.67-1.17 [phone] Egfr Non- 88.6 >60 Egfr 107.2 >60 1 Laboratory test 12/15/2018 [facility] Blood Urea 25 mg/dL High 6-24 finding [phone] Nitrogen BUN Laboratory test 02/08/2018 [facility] Magnesium 1.9 mg/dL N 1.9-2.7 finding [phone] Comp Metabolic 02/08/2018 [facility] Sodium 136 mmol/L Low 139-145 Panel [phone] Chloride 102 mmol/L N 101-111 Co2 Carbon [...] 5 mmol/L N 2-11 Laboratory test 01/02/2018 [facility] Magnesium 1.8 mg/dL Low 1.9- 2.7 3 finding [phone] CBC Auto Diff 01/02/2018 [facility] White Blood 6.3 10^3/uL N 3.5- 10.8 [phone] Count Red Blood Count 4.23 10^6/uL N [...] Cells % 0.1 Comp Metabolic Panel 01/02/2018 [facility] Sodium 137 mmol/L Low 139- 145 [phone] Chloride 102 mmol/L N 101-111 Co2 Carbon [...] 7 mmol/L N 2-11 Laboratory test 01/02/2018 [facility] TSH (Thyroid Stim 2.65 mcIU/mL N 0.34-5.60 5 finding [phone] Horm) Lipid Profile 01/02/2018 [facility] Triglycerides 163 mg/dL 6 (Trig/Chol/HDL) [phone] Cholesterol 277 mg/dL 7 HDL Cholesterol 52.5 mg/dL 8 LDL Cholesterol 192 mg/dL 9 Laboratory test 01/02/2018 [facility] Vitamin B12 661 pg/mL N 180- 817 10 finding [phone] Cell Morphology 01/02/2018 [facility] Macrocytosis 1+ [phone] Laboratory test 09/23/2017 In House Hemoglobin A1c 6.0 finding Glucose Quantitative 97 Cell Morphology 06/23/2017 [facility] Platelet Morphology Large N [phone] Macrocytosis 1+ N Laboratory test 06/23/2017 [facility] TSH (Thyroid 2.78 mcIU/mL N 0.34-5.60 finding [phone] Stim Horm) Vitamin B12 457 pg/mL N 180-598 11 Vitamin D Total 25(Oh) 32.9 ng/mL N 20-50 Comp Metabolic Panel 06/23/2017 [facility] Sodium 139 mmol/L N 133- 145 [phone] Potassium 4.2 mmol/L N 3.5-5.0 Chloride 107 [...] N >60 12 CBC Auto Diff 06/23/2017 [facility] White Blood Count 6.3 10^3/uL N 3.5-10.8 [phone] Red Blood Count 3.87 10^6/uL Low 4.0-5.4 [...] % 0.1 N Laboratory test finding 06/23/2017 [facility] Magnesium 1.7 mg/dL Low 1.9-2.7 [phone] Urine Micro Inhouse 02/21/2017 In House Ua WBC - 13 Ua RBC - Ua Casts - Ua Epi 0-1 Ua Other - Ua Glucose - Ua Bilirubin - Ua Ketones - Ua Specific [place] 1.010 Ua Blood - Ua PH 6.0 [...] gold Procedures Date Code Description Status 01/04/2019 48539 Electrocardiogram Complete Completed 09/19/2014 [id number] Colonoscopy Completed Encounters Type Date Location Provider [...] events affecting family and household Z79.899 Other correction (current) drug therapy Office Visit 06/23/2017 10:00a [...] pm - Nii South D.O. at Main [place]6001/04/2019 - Nii South D.O.I10 Essential (primary) hypertensionFollow up:6 months recheck HTN, prediabetes, weight lossM54.5 Low back painR73.03 UddokkzmnqaT16.01 Morbid (severe) obesity due to excess opddjtmyR44.1 Generalized anxiety atgzfxkcK78.818 Encounter for other preprocedural rhmefftsmqlP28.12 Post-traumatic stress disorder, vvkmmwmA86.21 Adjustment disorder with depressed moodR73.01 Impaired fasting cukqqygC39.79 Other stressful life events affecting family and household
[2019-01-28] MEDS ORDERED: Acetaminophen TAB* 325 MG PO ONE (00:50)
[2019-01-28] MEDS ORDERED: cefTRIAXone(*) 2 GM in NS 0.9% 100 ML* 100 ML IVPB ONE (00:51)
[2019-01-28] MEDS ORDERED: NS 0.9% 1000 ML** 3,000 ML IV ONE (00:51)
--- NOTE | 2019-01-28 00:51 | ED ---
Complex/Multi-Sys Presentation - HPI Summary HPI Summary: This patient is a 63 year old M brought in by ambulance to [facility] with a chief complaint of LE soreness since earlier tonight. He had back surgery on the morning of 01/25/19. He was discharged home 01/27/19 at 16:00. Prior to discharge, he was able to ambulate. Patient reports fever, weakness, difficulty ambulating, and back pain similar to what he had before his surgery. Patient denies numbness, urinary symptoms, SOB, and chills. The patient rates the pain 10/10 in severity. He last urinated 1 hour ago. - History Of Current Complaint Chief Complaint: EDFever Time Seen by Provider: 01/28/19 00:33 Hx Obtained From: Patient Onset/Duration: Lasting Hours, Still Present Timing: Constant Severity Currently: Severe Severity Initially: Severe Associated Signs And Symptoms: Positive: Weakness, Back Pain, Fever, Other - Difficulty amulating. Denies numbness, urinary symptoms, and chills.. Negative : SOB - Allergies/Home Medications Allergies/Adverse Reactions: Allergies Allergy/AdvReac Type Severity Reaction Status Date / Time No Known Allergies Allergy Verified 01/28/19 01:59 PMH/Surg Hx/FS Hx/Imm Hx Endocrine/Hematology History: Denies: Hx Diabetes - PRE NO MEDS Cardiovascular History: Reports: Hx Hypertension - ON MEDICATION Denies: Hx Pacemaker/ICD, Other Cardiovascular Problems/Disorders Respiratory History: Reports: Hx Sleep Apnea Denies: Other Respiratory Problems/Disorders GI History: Reports: Other GI Disorders - UMBILICAL HERNIA X3, MESH MIGRATED INTO BOWELS, SPLENECTOMY History: Reports: Other Problems/Disorders - INCONTINENT A FEW TIMES Denies: Hx Renal Disease Musculoskeletal History: Reports: Hx Arthritis - HANDS, RIGHT TOTAL KNEE REPLACEMENT 2014 Denies: Hx Bursitis, Hx Tendonitis, Other Musculoskeletal History Sensory History: Denies: Hx Contacts or Glasses, Hx Hearing Aid Opthamlomology History: Denies: Hx Contacts or Glasses Neurological History: Reports: Hx Nerve Disease - DONIS'S PALSY 1994, Other Neuro Impairments/Disorders - HISTORY OF VERTIGO, NOT RECENT Psychiatric History: Reports: Hx Anxiety, Hx Depression Denies: Hx Panic Disorder, Other Psychiatric Issues/Disorders - Surgical History Surgery Procedure, Year, and Place: SPLENECTOMY, UMBILICAL HERNIA X3 WITH MESH; RIGHT KNEE REPLACEMENT Hx Anesthesia Reactions: No Infectious Disease History: No Infectious Disease History: Reports: Hx Shingles - 2002 Denies: Hx Clostridium Difficile, Hx Hepatitis, Hx Human Immunodeficiency Virus (HIV), Hx of Known/Suspected MRSA, Hx Tuberculosis, Hx Known/Suspected VRE , Hx Known/Suspected VRSA, History Other Infectious Disease, Traveled Outside the [place] in Last 30 Days - Family History Known Family History: Positive: Cardiac Disease - mother, Other - father, prostate cancer - Social History Alcohol Use: Weekly Substance Use Type: Reports: None Smoking Status (MU): Never Smoked Tobacco Review of Systems Positive: Fever. Negative: Chills Negative: Shortness Of Breath Positive: no symptoms reported Positive: Other - Difficulty ambulating and back pain Positive: Weakness. Negative: Numbness All Other Systems Reviewed And Are Negative: Yes Physical Exam - Summary Physical Exam Summary: VITAL SIGNS: Reviewed. GENERAL: Patient is a morbidly obese MALE who is lying comfortable in the stretcher. Patient is not in any acute respiratory distress. HEAD AND FACE: No signs of trauma. No ecchymosis, hematomas or skull depressions. No sinus tenderness. EYES: PERRLA, EOMI x 2, No injected conjunctiva, no nystagmus. EARS: Hearing grossly intact. Ear canals and tympanic membranes are within normal limits. MOUTH: Oropharynx within normal limits. NECK: Supple, trachea is midline, no adenopathy, no JVD, no carotid bruit, no c- spine tenderness, neck with full ROM CHEST: Symmetric, no tenderness at palpation LUNGS: Clear to auscultation bilaterally. No wheezing or crackles. CVS: Regular rate and rhythm, S1 and S2 present, no murmurs or gallops appreciated. ABDOMEN: Soft, non-tender. No signs of distention. No rebound no guarding, and no masses palpated. Bowel sounds are normal. EXTREMITIES: FROM in all major joints, no edema, no cyanosis or clubbing. BACK: Healing incision over the midline lumbar area with surrounding erythema, warmness, and tenderness NEURO: Alert and oriented x 3. No acute neurological deficits. Speech is normal and follows commands. Bilateral LE weakness. Pt is unable to hold both his legs up against gravity. SKIN: Dry and warm Triage Information Reviewed: Yes Vital Signs On Initial Exam: Initial Vitals Temp Pulse Resp BP Pulse Ox 103.5 F 72 20 125/63 95 01/28/19 00:25 01/28/19 00:25 01/28/19 00:25 01/28/19 00:25 01/28/19 00:25 Vital Signs Reviewed: Yes Diagnostics - Vital Signs Vital Signs Temp Pulse Resp BP Pulse Ox 01/28/19 00:25 103.5 F 72 20 125/63 95 - Laboratory Result Diagrams: 01/28/19 01:12 01/28/19 01:11 Lab Statement: Any lab studies that have been ordered have been reviewed, and results considered in the medical decision making process. - Radiology Chest X-Ray Radiology Interpretation Completed By: ED Physician Summary of Radiographic Findings: 02:32. Lung infiltrate. Pending official report. Thoracic Spine MRI Radiology Interpretation Completed By: Radiologist Summary of Radiographic Findings: 06:08 - No acute findings. ED Physician has reviewed this imaging report. Lumbar Spine MRI Radiology Interpretation Completed By: Radiologist Summary of Radiographic Findings: 06:28 - 1. Status post recent laminectomy of L2-L5. Significant inflammatory changes in. the bilateral paraspinal muscles, right greater than left, at the level of. L2-S1. 2. A focal fluid collection in the deep subcutaneous tissue in the midline of. the lower back (at the level of L4-S1) which measures approximately 1.6 x 1.9 x. 8.0 cm and may represent seroma versus early abscess. 3. Multilevel degenerative spondylosis as described above. ED Physician has reviewed this imaging report. - EKG 01:20 Cardiac Rate: NL - 67 BPM EKG Rhythm: Sinus Rhythm Complex Multi-Symp Course/Dx Course Of Treatment: This patient is a 63 year old M brought in by ambulance to [facility] with a chief complaint of LE soreness since earlier tonight. Physical exam showed a healing wound. The imaging showed PNA. Pt will be admitted by Tegan Felix MS, RPA-C, neurosugery, with dx cellulitis of back, wound infection , and PNA. - Diagnoses Provider Diagnoses: Cellulitis of back, Wound infection, PNA (pneumonia) - Physician Notifications Discussed Care Of Patient With: Tegan Mast - Neurosurgery Time Discussed With Above Provider: 06:38 Instructed by Provider To: Admit As Inpatient Discharge - Sign-Out/Discharge Documenting (check all that apply): Patient Departure - Admit Patient Received Moderate/Deep Sedation with Procedure: No - Discharge Plan Condition: Stable Disposition: [facility]ITT[facility]: Nii South DO [Primary Care Provider] - - Attestation Statements Document Initiated by Scribe: Yes Documenting Scribe: Carrington Chauhan Provider For Whom Scribe is Documenting (Include Credential): Domenic Lechuga MD Scribe Attestation: Carrington Crowley, scribed for Domenic Lechuga MD on 01/28/19 at 0654. Status of Scribe Document: Ready
[2019-01-28] MEDS ORDERED: Vancomycin(*) 1,000 MG in NS 0.9% 250 ML* 250 ML IVPB ONE ×2 (00:52→13:00)
[2019-01-28] MEDS ORDERED: Ondansetron INJ* 2 MG/ML VIAL IV ONE (00:52)
[2019-01-28] MEDS ORDERED: fentaNYL* 50 MCG/ML 2 ML VIAL (100 MCG VIAL) IV SLOW PU ONE (00:52)
[2019-01-28 01:21] LABS: Hematocrit 37 % (42-52); Hemoglobin 12.4 g/dL (14.0-18.0); Mean Corpuscular HGB Conc 33 g/dL (31-36); Mean Corpuscular Hemoglobin 35 pg (27-31); Mean Corpuscular Volume 103 fL (80-94); Mean Platelet Volume 11.1 fL (7.4-10.4); Platelet Count 153 10^3/uL (150-450); Red Cell Distribution Width 14 % (10.5-15); White Blood Count 17.3 10^3/uL (3.5-10.8)
[2019-01-28] MEDS ORDERED: Dexamethasone IV* 4 MG/ML 1 ML (4 MG) IV SLOW PU ONE (01:26)
[2019-01-28 01:27] LABS: ABS Basophils 0.1 10^3/ul (0-0.2); ABS Lymphocytes 2.1 10^3/ul (1.0-4.8); ABS Monocytes 4.1 10^3/ul (0-0.8); ABS Neutrophils 10.9 10^3/ul (1.5-7.7); Eosinophil % 0.3 %; Lymphocyte % 12.4 %
[2019-01-28 01:40] LABS: ALT 42 U/L (7-52); AST 46 U/L (13-39); Albumin 3.5 g/dL (3.2-5.2); Albumin/Globulin Ratio 1.1 (1-3); Alkaline Phosphatase 67 U/L (34-104); Anion Gap 6 mmol/L (2-11); BUN/Creatinine Ratio 27.4 (8-20); Blood Urea Nitrogen 23 mg/dL (6-24); C Reactive Protein 169.78 mg/L (<8.01); CO2 Carbon Dioxide 27 mmol/L (22-32); Calcium 9.1 mg/dL (8.6-10.3); Chloride 101 mmol/L (101-111); EGFR African American 111.7 (>60); EGFR Non-African American 92.3 (>60); Globulin 3.3 g/dL (2-4); Glucose 145 mg/dL (70-100); Potassium 4.3 mmol/L (3.5-5.0); Sodium 134 mmol/L (135-145); Total Protein 6.8 g/dL (6.4-8.9)
[2019-01-28 01:42] LABS: Activated Partial Thrombo Time 34.8 seconds (26.0-36.3); INR 1.3 (0.82-1.09)
[2019-01-28 01:48] LABS: Troponin I 0.04 ng/mL (<0.04)
[2019-01-28] MEDS ORDERED: Gadoteridol* (CONTRAST) 279.3 MG/ML 10 ML IV ONE (03:59)
[2019-01-28] MEDS ORDERED: Magnesium Hydroxide LIQ* 30 ML UDC PO PRN ×2 (07:57→12:57)
[2019-01-28] MEDS ORDERED: Ondansetron INJ* 2 MG/ML VIAL IV PRN (07:57)
[2019-01-28] MEDS ORDERED: Acetaminophen TAB* 325 MG PO PRN (07:57)
--- NOTE | 2019-01-28 08:39 | HP ---
<Tegan Mast - Last Filed: 01/28/19 09:07> H&P (Free Text) History and Physical: History and Physical Date of Admission: 01/28/19 Attending: Dr. Maldonado PCP: Dr. South Reason for Admission: Post-operative pain exacerbation, fever CC: Severe low back pain, fever HPI: This is a 63 year old male who underwent decompressive lumbar laminectomy L2-S1 with Dr. Maldonado on 01/25/19. He was discharged home yesterday on . While admitted, he was ambulating well independently, pre-operative lower extremity symptoms were improved. The incisional and post-op low back pain was well controlled with PO medication. On 01/27/19 the wound drain continued to collect a large volume of fluid. However, after dressing change, the drain lost suction and accidentally fell out. He was observed for neurological changes over the next 3-4 hours, which was benign, and then discharged home. Inola was prescribed to his home pharmacy. He was planning on having a family member waste picker this medication today. He was feeling well at time of discharge and did not think that he would need any pain medication overnight. He was resting at home in the recliner for approximately 1-2 hours when he went to get up out of the chair and experienced severe low back pain down into the buttocks and difficulty standing. He also felt like he had a fever. He then decided to call for an ambulance. He was transported to [facility] via ambulance. Upon arrival to the ED he was found to have a fever of 103.3 and WBC 17.3. MRI of the lumbar and thoracic spine were obtained and he was given IV antibiotics. Neurosurgery was called for admission. Past Medical History: 1. HTN 2. Depression 3. Anxiety 4. CARMINA, uses CPAP 5. Lumbar stenosis Past Surgical History: 1. Decompressive lumbar laminectomy L2-S1 01/25/19 2. Splenectomy 2004 3. Right knee surgery 2015 Home Medications: 1. Diazepam TAB(NF) [Valium TAB(NF)] 10 mg PO TID PRN 08/20/15 [History Confirmed 01/28/19] 2. Sertraline* [Zoloft*] 100 mg PO QAM 08/20/15 [History Confirmed 01/28/19] 3. Amlodipine Besylate [Norvasc] 5 mg PO QAM 01/19/19 [History Confirmed ] 4. Lisinopril 40 mg PO QAM 01/19/19 [History Confirmed 01/28/19] 5. Magnesium Oxide [Magnesium] 3 tab PO BEDTIME 01/19/19 [History Confirmed 09/06] 6. Naproxen Sodium [Aleve] 440 mg PO BID 01/19/19 [History Confirmed 01/28/19] 7. Mershon Xl 1 tab PO BID 01/19/19 [History Confirmed 01/28/19] 8. Real Genius Prostate Formula 1 tab PO BID 01/19/19 [History Confirmed ] 9. HYDROcodone/ACETAMIN 5-325 MG* [Inola 5-325 TAB*] 1 - 2 tab PO Q4H PRN #42 tab MDD 6 01/27/19 [Rx Confirmed 01/28/19] Allergies: No known allergies Social History: This patient lives alone. No tobacco use. He drinks liquor daily. ROS: Full ROS completed. Pertinent findings stated in HPI. Physical Exam: Vital Signs: Temp Pulse Resp BP Pulse Ox 101.5 F 70 15 119/57 88 01/28/19 02:05 01/28/19 08:01 01/28/19 08:01 01/28/19 07:40 01/28/19 08:01 General: Alert, Comfortable on stretcher. NAD HEENT: Head is normocephalic and atraumatic. PERRL, EOMI. Sclerae anicteric. Moist mucus membranes. Neck: Supple and symmetric CV: Radial and pedal pulses 2+ and equal Lungs: Breathing is nonlabored Abdomen: The abdomen is obese. Nondistended. Normoactive bowel sounds. Neuro: Speech is clear. Able to answer questions appropriately and provide history. Oriented to person, place, time and situation. CN II-XII intact. PERRL. Strength 5/5 bilateral upper and lower extremities. Sensation intact throughout. Incision: Intact, no erythema, swelling. Dressing present to lumbar wound. Mild ecchymosis. Extremities: No edema Imagin. MRI lumbar spine 2. MRI thoracic spine 3. Chest xray Assessment: This is a 63 year old male who underwent decompressive lumbar laminectomy L2-S1 on 01/25/[address] Maldonado and was discharged home on , now presents with severe low back pain and fever. Plan: 1. Admit for observation 2. Hospitalist consult for comanagement medical conditions, fever 3. Pain management with norco and cyclobenzaprine 4. Encourage OOB and ambulation 5. Encourage incentive spirometry 6. <Khloe Maldonado - Last Filed: 01/28/19 19:37> H&P (Free Text) History and Physical: Patient seen and examined. Agree with above. Patient reported back pain after not been able to fill prescription with pain meds. Was found to have increased temperature in ED. Afebrile since admission. No drainage from wound. Patient reports that preop RLE pain is resolved. Able to ambulate, Voids. Wound s,c,d. Neurological exam intact. Perineal sensation intact. MRI revealed postop changed. Canal decompressed. No abscess. Will monitor. Appreciate IM care. Lorena Maldonado MD
[2019-01-28] MEDS ORDERED: Piperacillin/Tazobac ADVAN(*) 3.375 GM in NS 0.9% 100 ML* 100 ML IVPB ONE (12:50)
[2019-01-28] MEDS ORDERED: Polyethylene Glycol 3350* 17 GM PACKET PO PRN (12:57)
[2019-01-28] MEDS ORDERED: Senna TAB PO PRN (12:57)
[2019-01-28] MEDS ORDERED: Zosyn per Pharmacy* NOTE FOLLOW UP SCH (13:00)
[2019-01-28] MEDS: HYDROcodone/ACETAMIN 5-325 MG* 1 TAB PO PRN ×2 (13:01→22:09)
[2019-01-28] MEDS ORDERED: Vancomycin per Pharmacy* NOTE FOLLOW UP PRN (13:22)
--- NOTE | 2019-01-28 15:54 | CONS ---
[facility] MEDICINE CONSULTATION REPORT: DATE OF CONSULT: 01/28/19 PROVIDER: Kay Freeman NP. ATTENDING PHYSICIAN: Dr. Maldonado. CONSULTING PHYSICIAN: Dr. Dayne Vegas (dictated by Kay Freeman NP) . REASON FOR CONSULT: Fever and co-management of chronic medical conditions. HISTORY OF PRESENT ILLNESS: Mr. Bunch is a 63-year-old male with a past medical history significant for depression; anxiety; hypertension; lumbar stenosis, status post decompressive lumbar laminectomy, L2 through S1 on 01/25/19, who presented to the emergency room with a complaint of fever and weakness. Mr. Bunch was discharged on 01/27/19. While he was admitted in the hospital, he was ambulating independently and had some incisional low back pain that was controlled with p.o. medications. On 01/27/19, he did have a wound drain that was collecting large amounts of drainage that was accidentally pulled on the morning of 01/27/19. The patient was subsequently watched and discharged in the evening to home. The patient reports that he was up ambulating at home. He was doing well. He reports that he sat in his recliner and when he awoke at approximately 10 p.m., he reports that he was sweaty and felt hot. The patient also reports that he felt weak, so he returned to the emergency room for evaluation. On arrival to the emergency room, he was found to have a fever of 103.3. He did have routine blood work drawn, CBC, BMP. He was found to have leukocytosis with white blood cell count of 17.3. He had an MRI of the lumbar and thoracic spine and was given antibiotics vancomycin and ceftriaxone in the emergency room. The patient also received 3 L of normal saline in the emergency room. Due to his chronic conditions of hypertension, depression, anxiety and obstructive sleep apnea as well as fever, we were asked to see in consult. PAST MEDICAL HISTORY: 1. Hypertension. 2. Depression. 3. Anxiety. 4. Obstructive sleep apnea, noncompliant with CPAP. 5. Lumbar stenosis. PAST SURGICAL HISTORY: Decompressive laminectomy, L2 through S1 on 01/25/19; splenectomy in 2004; right knee replacement. MEDICATIONS: Provided by the patient: 1. Diazepam 10 mg t.i.d. p.r.n. anxiety. 2. Sertraline 100 mg p.o. daily. 3. Amlodipine 5 mg p.o. daily. 4. Lisinopril 40 mg p.o. daily. 5. Magnesium oxide 3 tablets at bedtime. 6. Naproxen 440 mg p.o. b.i.d. 7. [place]-3 one tablet b.i.d. 8. Real [employer] Prostate Formula 1 tab b.i.d. 9. Hydrocodone/acetaminophen 5/325 mg 1 to 2 tablets q.4 hours as needed for pain. ALLERGIES: No known drug allergies. SOCIAL HISTORY: The patient lives at home alone. He denies any tobacco or illicit drug use. Does report occasional alcohol use. Surrogate decision maker in the event he is unable to make his own decisions is his brother, Oj , or daughter. He is a full code. REVIEW OF SYSTEMS: The patient does report fever and diaphoresis at home. He denies any chest pain or shortness of breath. He denies any cough, congestion, or hemoptysis. Denies any nausea, vomiting, diarrhea, or abdominal pain. Denies any urinary frequency, urgency, or pain with urination. He does complain of some mild lower back pain and feeling of weakness in his buttocks. PHYSICAL EXAM: Vital Signs: Blood pressure 114/48, temperature was 98.2, heart rate was 65, respirations 20, O2 saturation 94%. Extremities: He can move all 4 extremities with 5/5 strength. Neurologic: He is awake, alert, oriented x3. Speech is clear. Thought process is intact. There are no gross focal deficits. Skin: He has a surgical incision to the lumbar region of his lower back with scant amount of dry bloody drainage. DIAGNOSTIC STUDIES/LAB DATA: WBCs are 17.3, RBCs 3.60, hemoglobin 12.4, hematocrit is 37, platelet count 153. INR is 1.30. Sodium 134, potassium 4.3, chloride 101, carbon dioxide was 27, anion gap of 6, BUN was 23, creatinine 0.84 , lactic acid is 0.6, calcium 9.1. ASTs were 46, ALTs were 42, alkaline phosphatase 67. Troponin was 0.04, 0.02. C-reactive protein was 169.78. Urine is currently pending. Chest x-ray, radiologist's impression: No radiographic evidence of acute cardiopulmonary abnormality on the portable chest x-ray. He had an MRI of the lumbar spine. Status post recent laminectomy L2-L5; significant inflammatory changes in the bilateral paraspinal muscles, right greater than left at the level of L2 to S1; focal fluid collection and deep subcutaneous tissue in the midline of the lower back at level L4-S1, which measures approximately 1.6 x 1.9 x 8 cm and may represent a seroma versus early abscess; multi-degenerative spondylosis. He had an MRI of the thoracic spine, radiologist's impression: No acute findings. Soft tissues unremarkable. IMPRESSION AND PLAN: Mr. Bunch is a 63-year-old male who had decompressive lumbar laminectomy on 01/25/19 from L2-S1 with Dr. Maldonado, who presented to the emergency room with complaints of pain, fever, and weakness. He was found to have leukocytosis and a fever of 103.3. Hospital Medicine was asked to consult due to fever of unclear origin and co-management of chronic medical conditions. Our recommendations are as follows: 1. Status post L2 through S1 laminectomy. Management per Neurosurgery. Bowel regimen: I would recommend bowel medications and DVT prophylaxis per Neurosurgery. 2. Sepsis. The patient met sepsis criteria on admission with a fever of 103.3, leukocytosis 17.3 and suspected source of possible epidural abscess. He was given vancomycin and ceftriaxone in the ER and 3000 cc bolus. We will continue antibiotics. urine is pending , chest x ray is negative. Patient does not have any cough or hypoxia. 3. Fever. Fever on presentation to the emergency room was 103.3. He has unclear etiology for source of his fever. The patient is status post laminectomy and does have an MRI that shows a fluid collection that could be a seroma versus early abscess. He also has a urine that is currently pending. Given the fact that the patient had a splenectomy in 2004 and presents with a fever, I will place him on vancomycin and Zosyn, dosing per pharmacy. Blood cultures are currently pending and a urine culture is pending. We will continue to monitor this patient for any acute changes. 4. Hypertension. The patient currently takes lisinopril and amlodipine for his hypertension. We will hold his blood pressure medications at this time due to underlying infection and these should be restarted when blood pressure is stable to resume the medications. 5. Depression. He should continue on sertraline 100 mg p.o. daily. 6. Obstructive sleep apnea. The patient is noncompliant with CPAP at home. I would recommend the use of CPAP while in the hospital. 7. DVT prophylaxis: I would recommend SCDs and further management per Neurosurgery. 8. Diet: The patient can have a regular diet. 9. Code status: He is a full code. TIME SPENT: Time spent on this consultation was 45 minutes, greater than half that time was spent at the bedside reviewing events leading thus far to his hospitalization, performing physical exam, and reviewing my plan of care. I have discussed with my attending, Dr. Dayne Vegas; he is in agreement with my plan. KAY FREEMAN, JEFRY [id number]/CPS #: [id number] LORI
[2019-01-28 18:16] LABS: Urine Appearance Clear; Urine Bilirubin Negative (Negative); Urine Blood Negative (Negative); Urine Color Yellow; Urine Glucose Negative (Negative); Urine Ketones Negative (Negative); Urine Nitrite Negative (Negative); Urine Protein Negative (Negative); Urine Specific Gravity 1.014 (1.010-1.030); Urine Urobilinogen Negative (Negative)
[2019-01-28] MEDS: Docusate CAP* 100 MG PO SCH (19:23)
[2019-01-28 21:09] LABS: Troponin I 0.02 ng/mL (<0.04)
[2019-01-28] MEDS: Vancomycin(*) 1,250 MG in NS 0.9% 250 ML* 250 ML IVPB SCH (22:11)
[2019-01-29] MEDS: ZOSYN 3.375 GM Q8H per EXTENDED INFUSION IVPB SCH ×8 (00:21→17:14)
[2019-01-29] MEDS: HYDROcodone/ACETAMIN 5-325 MG* 1 TAB PO PRN ×3 (05:49→23:17)
[2019-01-29] MEDS: Vancomycin(*) 1,250 MG in NS 0.9% 250 ML* 250 ML IVPB SCH ×2 (05:50→14:20)
[2019-01-29 06:09] LABS: Hematocrit 36 % (42-52); Hemoglobin 12.2 g/dL (14.0-18.0); Mean Corpuscular HGB Conc 34 g/dL (31-36); Mean Corpuscular Hemoglobin 35 pg (27-31); Mean Corpuscular Volume 104 fL (80-94); Mean Platelet Volume 10.7 fL (7.4-10.4); Platelet Count 179 10^3/uL (150-450); Red Blood Count 3.51 10^6 /uL (4.18-5.48); Red Cell Distribution Width 14 % (10.5-15); White Blood Count 21.4 10^3/uL (3.5-10.8)
[2019-01-29 06:47] LABS: ABS Basophils 0.1 10^3/ul (0-0.2); ABS Lymphocytes 2.4 10^3/ul (1.0-4.8); ABS Monocytes 3.4 10^3/ul (0-0.8); ABS Neutrophils 15.5 10^3/ul (1.5-7.7); Eosinophil % 0.1 %; Large Platelets Present; Nucleated Red Blood Cells % 0.1
[2019-01-29] MEDS: Docusate CAP* 100 MG PO SCH ×2 (08:53→20:44)
[2019-01-29] MEDS: Sertraline* 100 MG TAB PO SCH (08:53)
--- NOTE | 2019-01-29 12:46 | PN ---
Progress Note - Progress Note Date of Service: 01/29/19 SOAP: Subjective: [Pt seen this morning at 0745. S/p L2-S1 decompression with Dr. Maldonado on 01/25/19. Pt was discharged home on 01/27/19. He returned to [facility] with complaint of fever and back pain on 01/28/19 and was admitted for work up and treatment. This morning he reports that the back pain is well controlled with the PO medications. He is up and ambulating around the nursing unit frequently, lower extremity symptoms improved. Denies nausea, headache, fever, chills. He has not had a bowel movement since surgery and is concern for constipation, bowel medications are available. Denies lower extremity numbness, tingling, weakness and pain. He was started on vanco and zosyn for elevated WBC, fever. Denies abdominal pain] Objective: [ Vital Signs: Temp Pulse Resp BP Pulse Ox 97.9 F 66 17 121/53 92 01/29/19 11:22 01/29/19 11:22 01/29/19 11:22 01/29/19 11:22 01/29/19 11:22 General: Alert, comfortable laying in bed. Neuro: Motor and sensory intact Incision: Intact. No swelling, erythema, tenderness.] Assessment: [Pt s/p lumbar decompression L2-S1 on 01/25 readmitted on 01/28 with fever, elevated WBC.] Plan: [1. Encourage OOB and ambulation 2. Encourage IS 3. Pain management with Tabiona 4. Hospitalist following]
--- NOTE | 2019-01-29 13:52 | PN ---
Subjective Date of Service: 01/29/19 Interval History: Pt seen and examined. Meds and labs reviewed. CC: Back pain improved ROS: Denied BLANCO/dizziness, F/C, N/V, CP, SOB, increased cough, sputum production , abd pain, diarrhea, constipation, dysuria, , throat pain, and new skin lesions. The rest of the 14 point ROS are unremarkable. PHYSICAL EXAM: GEN APPEARANCE: Awake, not in acute distress, appears comfortable, obese HEENT: NC/AT, PERRLA, moist oral mucosa, (-) throat erythema NECK: Soft, supple, (-) cervical LAD, (-)JVD HEART: S1S2 WNL, RRR, No MRG CHEST: CTA, BL, GAE, No W/R/R ABD: Soft, ND/NT, NABS 4x Q EXT: No C/C/E SKIN: Warm to touch PSYCH: No active psychosis, hallucinations, depression, SI/HI Objective Active Medications: Acetaminophen (Tylenol Tab*) 650 mg PO Q4H PRN PRN Reason: PAIN Hydrocodone Bitart/Acetaminophen (Ada 5-325 Tab*) 2 tab PO Q4H PRN PRN Reason: marked pain Last Admin: 01/29/19 05:49 Dose: 2 tab Docusate Sodium (Colace Cap*) 100 mg PO BID [facility] Last Admin: 01/29/19 08:53 Dose: 100 mg Vancomycin HCl 1,250 mg/ (Sodium Chloride) 250 mls @ 166.667 mls/hr IVPB Q8HR [facility]; Protocol Last Admin: 01/29/19 05:50 Dose: 166.667 mls/hr Piperacillin Sod/Tazobactam (Sod 3.375 gm/ Sodium Chloride) 100 mls @ 25 mls/ hr IVPB Q8H [facility] Last Admin: 01/29/19 07:58 Dose: 25 mls/hr Magnesium Hydroxide (Milk Of Magnesia Liq*) 30 ml PO DAILY PRN PRN Reason: CONSTIPATION Last Admin: 01/28/19 22:11 Dose: 30 ml Magnesium Hydroxide (Milk Of Magnesia Liq*) 30 ml PO BID PRN PRN Reason: CONSTIPATION Ondansetron HCl (Zofran Inj*) 4 mg IV Q6H PRN PRN Reason: NAUSEA/VOMITING Pharmacy Consult (Zosyn Per Pharmacy*) 1 note FOLLOW UP .ZOSYN PER PHARMACY [facility] Pharmacy Consult (Vancomycin Per Pharmacy*) 1 note FOLLOW UP . PRN PRN Reason: PER PROTOCOL Pharmacy Profile Note (Vancomycin Trough Check) 1 note FOLLOW UP ONCE ONE Stop: 01/30/19 05:31 Polyethylene Glycol/Electrolytes (Miralax*) 17 gm PO DAILY PRN PRN Reason: CONSTIPATION Last Admin: 01/29/19 05:49 Dose: 17 gm Senna (Senokot Tab*) 1 tab PO BEDTIME PRN PRN Reason: CONSTIPATION Last Admin: 01/28/19 21:34 Dose: 1 tab Sertraline HCl (Zoloft*) 100 mg PO QAM [facility] Last Admin: 01/29/19 08:53 Dose: 100 mg Vital Signs - 8 hr 01/29/19 01/29/19 01/29/19 07:12 07:18 08:48 Temperature 97.9 F Pulse Rate 64 Respiratory 18 18 18 Rate Blood Pressure 125/68 (mmHg) O2 Sat by Pulse 96 Oximetry 01/29/19 11:22 Temperature 97.9 F Pulse Rate 66 Respiratory 17 Rate Blood Pressure 121/53 (mmHg) O2 Sat by Pulse 92 Oximetry Oxygen Devices in Use Now: None Result Diagrams: 01/29/19 05:59 01/28/19 01:11 Microbiology and Other Data: Microbiology 01/28/19 01:11 Aerobic Blood Culture - Preliminary Blood Venous No Growth Day 1 Anaerobic Blood Culture - Preliminary No Growth Day 1 01/28/19 01:11 Aerobic Blood Culture - Preliminary Blood Venous No Growth Day 1 Anaerobic Blood Culture - Preliminary No Growth Day 1 Assess/Plan/Problems-Billing Assessment: - Patient Problems (1) Fever Current Visit: Yes Status: Acute Code(s): R50.9 - FEVER, UNSPECIFIED SNOMED Code(s): 552952297 Comment: -S/P decompressive lumbar laminectomy on 01/25/19 -No recurrence last night -Accompanied by back pain after drainage accidentally fell off -D/W Dr. Ashton who reviewed the MRI and mentioned no evidence of abscess -No other focus of fever at this time could be identified; U/A and CXR unremarkable -Blood Cx (-) x 1 day -Continue Zosyn and Vanco -D/W Dr. Ruggiero and will await any further recommendations -Rising leukocytosis possibly due to above vs. peripheral demarginalization given pt was given Dexamethasone in ER on admission (2) HTN (hypertension) Current Visit: Yes Status: Acute Code(s): I10 - ESSENTIAL (PRIMARY) HYPERTENSION SNOMED Code(s): 16319653 Comment: -Well controlled -Continue to hold home BP meds (3) Depression Current Visit: Yes Status: Acute Code(s): F32.9 - MAJOR DEPRESSIVE DISORDER , SINGLE EPISODE, UNSPECIFIED SNOMED Code(s): 79747010 Comment: -Stable -Continue Sertraline (4) DVT (deep venous thrombosis) Current Visit: Yes Status: Acute Code(s): I82.409 - ACUTE EMBOLISM AND THOMBOS UNSP DEEP VN UNSP LOWER EXTREMITY SNOMED Code(s): 786926732 Comment: -Defer w/NeuroSx preference; pt high risk for DVT -Continue SCDs Status and Disposition: -For PT eval
[2019-01-29 20:01] LABS: Calcium 8.6 mg/dL (8.6-10.3); Potassium 4.8 mmol/L (3.5-5.0)
[2019-01-29 20:07] LABS: BUN/Creatinine Ratio 29.9 (8-20); EGFR African American 107.2 (>60); EGFR Non-African American 88.6 (>60)
--- NOTE | 2019-01-29 20:38 | CONS ---
CONSULTATION REPORT: DATE OF CONSULT: 01/29/19 PRIMARY CARE PROVIDER: Dr. Nii South. PROVIDER REQUESTING CONSULTATION: Dr. Dayne Vegas. CONSULTING SERVICE: Infectious Disease. PROVIDER: Archana Harper NP My attending physician is Dr. Dennis Ruggiero.* (DICTATED BY ARCHANA HODGES NP) REASON FOR CONSULT: Fever and leukocytosis postoperatively. IMPRESSION: 1. Fever and leukocytosis postoperatively. Differential diagnosis includes incisional abscess, paraspinal infection, urinary tract infection or other infection such as pneumonia, or seroma. The patient denies any cough. He had a chest x-ray showing no abnormalities. He has a negative urinalysis and denies any urinary symptoms. I suspect this most likely represents a possible incisional abscess based on the findings on the lumbar MRI showing significant inflammatory change in the bilateral paraspinal muscles, the right greater than the left at L2 to S1 with focal fluid collection, deep subcutaneous tissue in the midline of the lower back at the level of L4 to S1 which measures approximately 1.6 x 1.9 x 8 cm and may represent seroma versus early abscess, multilevel degenerative spondylosis as described in the body of the report. Thoracic spine with no acute findings. He has elevated CRP. 2. Obesity, BMI approximately 45. 3. Obstructive sleep apnea with CPAP use. 4. Anxiety/depression. The patient is currently afebrile, continues to have leukocytosis. He is on vancomycin and Zosyn since admission. PLAN/RECOMMENDATIONS: I recommend discontinuing vanco and Zosyn and place the patient on Bactrim DS 1 tablet twice daily for 14 days. This will cover MRSA and Staph aureus and gram-negative bacteria. HISTORY OF PRESENT ILLNESS: Mr. Bunch is a 63-year-old male with past medical history significant for depression; anxiety; hypertension; lumbar stenosis, status post decompressive lumbar laminectomy L2 to S1 on 01/25/19, who was discharged from the hospital on 01/27/19. At that point, the patient states that he had been doing well. He had been up walking around without difficulty since postop. The weakness and tingling in his right leg that he had preop had resolved. He was noted to have a Marko-Cassidy drain postoperatively and states that it was draining a fair amount of drainage when it became dislodged. He stated that he was feeling well but fatigued. He again was discharged on 01/27/19. He states that he got home, spending some time with his dog and he began to feel weak. He also noted that he had had a fever. Due to his history of splenectomy, he decided to present to the emergency room for evaluation. The patient states that he fell asleep in his recliner chair at approximately 10 p.m. on 01/27/19. He woke up feeling sweaty and very hot. While in the emergency room, he was found to have a fever of 103.3 upon arrival. He had routine blood work drawn showing leukocytosis with a white blood cell count of 17.3. He had MRI of his lumbar and thoracic spine. He received vancomycin and ceftriaxone while in the emergency room. He received 3 L of normal saline. He was seen in consultation by Neurosurgery, who admitted him for postoperative pain exacerbation and fever. The patient describes low back pain into bilateral buttocks with some difficulty standing. He had normal urinalysis and noted to have a CRP of 169.78. During his hospitalization, he was continued on vancomycin and Zosyn. He has been afebrile since his initial presentation with fevers, continued to have leukocytosis. His white blood cell count today was 21.4. He had blood cultures with no growth on day 1. He reports that he still continues to have some discomfort in his lower back, but he is able to ambulate and move around. PAST MEDICAL HISTORY: 1. Hypertension. 2. Depression. 3. Anxiety. 4. Obstructive sleep apnea with CPAP use. 5. Lumbar stenosis. PAST SURGICAL HISTORY: 1. Status post decompressive lumbar laminectomy from L2 to S1 on 01/25/19. 2. Status post splenectomy in 2004. 3. Status post right knee surgery in 2016. 4. Status post umbilical hernia repair with mesh. 5. Status post exploratory lap with removal of mesh. MEDICATIONS: Home medications include: 1. Sertraline 100 mg by mouth daily. 2. [employer] Prostate Formula 1 tablet by mouth twice daily. 3. [place]-3 one tablet by mouth twice daily. 4. Naproxen 440 mg by mouth twice daily. 5. Magnesium oxide 3 tablets by mouth at bedtime. 6. Lisinopril 40 mg by mouth daily. 7. [place] 5/325 one to two tablets by mouth every 4 hours as needed for pain. 8. Valium 10 mg by mouth 3 times daily as needed for anxiety. 9. Norvasc 5 mg by mouth every morning. Hospital medications: 1. Acetaminophen 650 mg by mouth every 4 hours as needed for fever or pain. 2. Colace 100 mg by mouth twice daily. 3. [place] 5/325 two tablets by mouth every 4 hours as needed for pain. 4. Milk of magnesia 30 mL by mouth twice daily as needed for constipation. 5. Zofran 4 mg IV every 6 hours as needed for nausea. 6. MiraLAX 17 g by mouth daily as needed for constipation. 7. Senokot 1 tablet by mouth at bedtime as needed for constipation. 8. Sertraline 100 mg by mouth every morning. 9. Zosyn 3.375 g IV every 8 hours. 10. Vancomycin 1250 mg IV every 8 hours. ALLERGIES: No known drug allergies. FAMILY HISTORY: Both parents with a history of emphysema. They were heavy smokers. Mother with a history of pacemaker. Brother with a history of diabetes. Father with a history of prostate cancer. Denies any family history of recurrent or resistant infections. SOCIAL HISTORY: He drinks 1 to 2 alcoholic beverages daily. Denies tobacco or recreational drug use. REVIEW OF SYSTEMS: I performed a 10-point review of systems. All the pertinent positives and negatives are mentioned in the history of present illness. The remaining review of systems are negative with the exception the patient reports some constipation due to the pain medication. He states his last bowel movement was today. He denies any cough. Reports generalized weakness. PHYSICAL EXAM: Vital Signs: Temperature 97.9, heart rate 66, respiratory rate 17, O2 sat 97% on room air, blood pressure 121/53. General Appearance: The patient is alert, pleasant, and appears to be in no acute distress. Head: Normocephalic, atraumatic. EENT: Extraocular movements are intact. Mucous membranes are moist. There is no conjunctival hemorrhage. Neck: Supple with no lymphadenopathy noted. Neurological: Alert and oriented x4. Cranial nerves II through XII are grossly intact. Cardiovascular: Regular rate and rhythm. S1, S2 present. No murmurs, rubs, or gallops heard. Respiratory: No accessory muscle use. The lungs are clear to auscultation bilaterally. Abdomen : Bowel sounds present x4. Abdomen: Soft, nontender, nondistended. Extremities: No lower extremity edema. Musculoskeletal: No clubbing or cyanosis noted. The patient exhibits good strength in all extremities. He has a strong dorsi and plantarflexion. There is no tenderness with palpation of his midline spine or back with the exception of directly over his incision site. Psychological: Calm and cooperative. Skin: No rashes or abnormalities seen. He has a dressing that is clean, dry, and intact to his lower midline spine. DIAGNOSTIC STUDIES/LAB DATA: Sodium 134, potassium 4.3, chloride 101, CO2 of 27 , BUN 23, creatinine 0.84, glucose 145. White blood cell count 21.4, hemoglobin 12.2, hematocrit 36, platelet count 179. Urinalysis is negative. Blood cultures with no growth on day 1. Please see impression and recommendations outlined above. Thank you for asking us to see Mr. Bunch in consultation. TIME SPENT: Time for this consultation was approximately 40 minutes, greater than half of that was spent with the patient discussing medications, past medical history, events leading to his arrival, and performing physical examination. The case has been reviewed with the attending Dr. Ruggiero who agrees with the plan of care. ARCHANA HARPER NP [id number]/[facility] #: [id number] LORI
[2019-01-29] MEDS: Sulfamethox/Trimethoprim DS 800/160* TAB PO SCH (20:44)
[2019-01-30] MEDS: HYDROcodone/ACETAMIN 5-325 MG* 1 TAB PO PRN ×4 (04:41→19:27)
[2019-01-30] MEDS ORDERED: Vancomycin Trough Check NOTE FOLLOW UP ONE (05:30)
[2019-01-30 06:21] LABS: Hematocrit 36 % (42-52); Mean Corpuscular HGB Conc 34 g/dL (31-36); Mean Corpuscular Hemoglobin 35 pg (27-31); Mean Corpuscular Volume 103 fL (80-94); Red Blood Count 3.49 10^6 /uL (4.18-5.48); Red Cell Distribution Width 14 % (10.5-15); White Blood Count 13.7 10^3/uL (3.5-10.8)
[2019-01-30 06:40] LABS: Albumin 3.2 g/dL (3.2-5.2); BUN/Creatinine Ratio 22.8 (8-20); Calcium 8.7 mg/dL (8.6-10.3); EGFR African American 100.5 (>60); EGFR Non-African American 83.1 (>60); Globulin 3.1 g/dL (2-4); Magnesium 1.8 mg/dL (1.9-2.7); Phosphorus 3.7 mg/dL (2.5-5.0); Potassium 4.4 mmol/L (3.5-5.0); Total Bilirubin 0.5 mg/dL (0.2-1.0); Total Protein 6.3 g/dL (6.4-8.9)
[2019-01-30 06:58] LABS: ABS Basophils 0.1 10^3/ul (0-0.2); ABS Eosinophils 0.4 10^3/ul (0-0.6); ABS Lymphocytes 4.1 10^3/ul (1.0-4.8); ABS Monocytes 2.5 10^3/ul (0-0.8); ABS Neutrophils 6.6 10^3/ul (1.5-7.7); Eosinophil % 3.2 %; Lymphocyte % 29.8 %; Mean Platelet Volume 10.4 fL (7.4-10.4); Nucleated Red Blood Cells % 0.2; Platelet Count 215 10^3/uL (150-450)
[2019-01-30] MEDS ORDERED: Magnesium Sulfate 2 GM IV* 2 GM/50 ML BAG IVPB ONE (07:30)
[2019-01-30] MEDS: Docusate CAP* 100 MG PO SCH (08:16)
[2019-01-30] MEDS: Sulfamethox/Trimethoprim DS 800/160* TAB PO SCH (08:17)
[2019-01-30] MEDS: Sertraline* 100 MG TAB PO SCH (08:17)
--- NOTE | 2019-01-30 08:35 | PN ---
Progress Note - Progress Note Date of Service: 01/30/19 SOAP: Subjective: 63 y/o male post L2 - S1 decompression, patient was admitted for post op infection. Patient has been stable over night report that his pain is well controlled with oral medication. He also denies fever chills, nausea and vomiting. He has tolerated food and oral liquids and is able to ambulate without any issues. His white count is trending down and his vitals are stable. Objective: [] Vital Signs - 12 hr Temp Pulse Resp BP Pulse Ox 01/30/19 07:12 98.0 F 56 17 157/74 94 01/30/19 06:38 18 01/30/19 04:41 16 01/30/19 03:04 98.2 F 54 16 136/75 93 01/30/19 01:25 16 01/29/19 23:17 16 01/29/19 23:15 16 01/29/19 23:10 98.9 F 53 17 142/69 92 01/29/19 20:45 16 General: Patient resting in bed NAD Neuro: GCS 15 CN II - XII intact, Sensation intact to light touch, LE motor strength intact 5/5 bilat. Patient able to ambulate independently. Derm surgical wound intact, no active drainage, no signs of fluid collection around surgery site, wound is non tender to touch. Assessment: 63 y/o male s/p post op infection responding well to abx treatment, patient is has been stable over night. Plan: 1) Continue to follow IM recommendations for infection control 2) Pain control as needed 3) control to ambulate 4) DVT prophylaxis, encourage to wear sequentials. 5) Will discuss with Dr. Singh if patient will need possible MRI.
--- NOTE | 2019-01-30 12:58 | PN ---
Subjective Date of Service: 01/30/19 Interval History: Pt seen and examined. Meds and labs reviewed. CC: N/A ROS: Denied BLANCO/dizziness, F/C, N/V, CP, SOB, increased cough, sputum production , abd pain, diarrhea, constipation, dysuria, myalgias, arthralgias, throat pain , and new skin lesions. The rest of the 14 point ROS are unremarkable. PHYSICAL EXAM: GEN APPEARANCE: Awake, not in acute distress HEENT: NC/AT, PERRLA, moist oral mucosa, (-) throat erythema NECK: Soft, supple, (-) cervical LAD, (-)JVD HEART: S1S2 WNL, RRR, No MRG CHEST: CTA, BL, GAE, No W/R/R ABD: Soft, ND/NT, NABS 4x Q EXT: No C/C/E SKIN: Warm to touch PSYCH: No active psychosis, hallucinations, depression, SI/HI Objective Active Medications: Acetaminophen (Tylenol Tab*) 650 mg PO Q4H PRN PRN Reason: PAIN Hydrocodone Bitart/Acetaminophen ([place] 5-325 Tab*) 2 tab PO Q4H PRN PRN Reason: marked pain Last Admin: 01/30/19 10:21 Dose: 2 tab Docusate Sodium (Colace Cap*) 100 mg PO BID [facility] Last Admin: 01/30/19 08:16 Dose: 100 mg Magnesium Hydroxide (Milk Of Magnesia Liq*) 30 ml PO DAILY PRN PRN Reason: CONSTIPATION Last Admin: 01/28/19 22:11 Dose: 30 ml Magnesium Hydroxide (Milk Of Magnesia Liq*) 30 ml PO BID PRN PRN Reason: CONSTIPATION Ondansetron HCl (Zofran Inj*) 4 mg IV Q6H PRN PRN Reason: NAUSEA/VOMITING Polyethylene Glycol/Electrolytes (Miralax*) 17 gm PO DAILY PRN PRN Reason: CONSTIPATION Last Admin: 01/29/19 05:49 Dose: 17 gm Senna (Senokot Tab*) 1 tab PO BEDTIME PRN PRN Reason: CONSTIPATION Last Admin: 01/28/19 21:34 Dose: 1 tab Sertraline HCl (Zoloft*) 100 mg PO QAM [facility] Last Admin: 01/30/19 08:17 Dose: 100 mg Trimethoprim/Sulfamethoxazole (Bactrim Ds 800/160 Tab*) 1 tab PO BID [facility] Last Admin: 01/30/19 08:17 Dose: 1 tab Vital Signs - 8 hr 01/30/19 01/30/19 01/30/19 06:38 07:12 08:15 Temperature 98.0 F Pulse Rate 56 Respiratory 18 17 17 Rate Blood Pressure 157/74 (mmHg) O2 Sat by Pulse 94 Oximetry 01/30/19 10:21 Temperature Pulse Rate Respiratory 16 Rate Blood Pressure (mmHg) O2 Sat by Pulse Oximetry Oxygen Devices in Use Now: None Result Diagrams: 01/30/19 05:56 01/30/19 05:56 Microbiology and Other Data: Microbiology 01/28/19 01:11 Aerobic Blood Culture - Preliminary Blood Venous No Growth Day 1 Anaerobic Blood Culture - Preliminary No Growth Day 1 01/28/19 01:11 Aerobic Blood Culture - Preliminary Blood Venous No Growth Day 1 Anaerobic Blood Culture - Preliminary No Growth Day 1 Assess/Plan/Problems-Billing Assessment: - Patient Problems (1) Fever Current Visit: Yes Status: Acute Code(s): R50.9 - FEVER, UNSPECIFIED SNOMED Code(s): 566991099 Comment: -No recurrence since admission -Unclear cause and w/broad differential as indicated by yesterdays ID note; d/ w Dr. Ruggiero who mentioned pt can be d/cd today as long as hemodynamically stable and will defer w/ortho -S/P decompressive lumbar laminectomy on 01/25/19 -No recurrence last night -Accompanied by back pain after drainage accidentally fell off -D/W Dr. Ashton who reviewed the MRI and mentioned no evidence of abscess -No other focus of fever at this time could be identified; U/A and CXR unremarkable -Blood Cx (-) x 2 days -Continue trial of Bactrim then F/U w/Dr. Ruggiero in 1 week -Improved leukocytosis (2) HTN (hypertension) Current Visit: Yes Status: Acute Code(s): I10 - ESSENTIAL (PRIMARY) HYPERTENSION SNOMED Code(s): 41433772 Comment: -Well controlled -Continue to hold home BP meds (3) Depression Current Visit: Yes Status: Acute Code(s): F32.9 - MAJOR DEPRESSIVE DISORDER , SINGLE EPISODE, UNSPECIFIED SNOMED Code(s): 77534551 Comment: -Stable -Continue Sertraline (4) DVT (deep venous thrombosis) Current Visit: Yes Status: Acute Code(s): I82.409 - ACUTE EMBOLISM AND THOMBOS UNSP DEEP VN UNSP LOWER EXTREMITY SNOMED Code(s): 290735740 Comment: -Defer w/NeuroSx preference; pt high risk for DVT -Continue SCDs Status and Disposition: -D/C Home when ready -Defer w/NeuroSx -At this time, we would like to sign-off of Mr. Kashif hair and have nothing to add at this time. Please feel free to call for any other questions and/or concerns. Thank you for involving us in Mr. Kashif hair and management.
[2019-01-30 15:27] VITALS: BP 141/57
--- NOTE | 2019-01-30 18:26 | DS ---
Date of Admission 01/28/19 Date of Discharge 01/30/19 Attending Physician: Dr. Ashton Diagnosis on Admisssion 1) Post op Pain 2) Fever Diagnosis on Discharge: 1) Post op pain 2) Fever Hospital Course: 63 y/o s/p decompression of lumbar spine levels L2 - S1 completed on 01/25/[address] Ashton. Patient was discharged home after observation on short stay surgical unit on 01/27/19. Patient began to experience increase low back pain, sweating fever and chills while at home. He followed up in ED and was admitted on 01/28/19, he completed lab work including a CBC that showed an elevated white count. Internal Medicine and Infectious disease were consulted, patient was placed on IV antibiotics and later changed to oral medication. His white count began trend down after taking medication. Patient vitals have been stable, his surgical wound is clean, dry and intact, with no signs of fluid collection around the incision. Patient continues to ambulate independently and tolerate oral food and liquids. At this time patient is recommended for discharge home. As per medicine he will be discharged with 2 weeks oral antibiotics and will follow up in neurosurgery clinic.
== END 2019-01-30 19:45 | disposition home or self-care (01) ==
LOC: ED 00:08 → SSU 07:56
PROVIDERS: ADMIT Neurological Surgery; ATTEND Neurological Surgery
DX: G89.18 Other acute postprocedural pain (principal); R50.9 Fever, unspecified; M54.5 Low back pain; I10 Essential (primary) hypertension; F32.9 Major depressive disorder, single episode, unspecified; I82.409 Acute embolism and thrombosis of unspecified deep veins of unspecified lower extremity; F41.9 Anxiety disorder, unspecified; G47.33 Obstructive sleep apnea (adult) (pediatric); M48.061 Spinal stenosis, lumbar region without neurogenic claudication; R53.1 Weakness; E66.9 Obesity, unspecified; Z68.42 Body mass index [BMI] 45.0-49.9, adult; Z98.890 Other specified postprocedural states
CPT/HCPCS: 36415; 71045; 72157; 72158; 80048; 80053; 80202; 81003; 83605; 83735; 84100; 84484; 85025; 85610; 85730; 86140; 87040; 93005; 96365; 96367; 96375; 99284; A9270-GY; A9579; G0378; J0696; J1100; J2405; J2543; J3010; J3370; J3475

== ENCOUNTER 2021-01-26 08:14 | Inpatient (IN) ==
[2021-01-26] MEDS ORDERED: NS 0.9% 1000 ml BAG 1,000 ML IV ONE (08:41)
[2021-01-26] MEDS ORDERED: Morphine 4 MG/ML VIAL (1 ml) IV ONE (09:32)
[2021-01-26 09:40] LABS: INR 1.52 (0.82-1.09)
[2021-01-26 09:46] LABS: ABS Basophils 0.1 10^3/ul (0-0.2); ABS Eosinophils 0.1 10^3/ul (0-0.6); ABS Lymphocytes 1.7 10^3/ul (1.0-4.8); ABS Monocytes 2.8 10^3/ul (0-0.8); ABS Neutrophils 10.1 10^3/ul (1.5-7.7); Albumin 3.3 g/dL (3.2-5.2); Anion Gap 8 mmol/L (2-11); Blood Urea Nitrogen 16 mg/dL (6-24); CO2 Carbon Dioxide 27 mmol/L (22-32); Calcium 9.1 mg/dL (8.6-10.3); Chloride 99 mmol/L (101-111); EGFR Non-African American 91.7 (>60); Eosinophil % 0.8 %; Glucose 134 mg/dL (70-100); Hematocrit 44 % (42-52); Hemoglobin 14.5 g/dL (14.0-18.0); Lymphocyte % 11.5 %; Mean Corpuscular HGB Conc 33 g/dL (31-36); Mean Corpuscular Hemoglobin 34 pg (27-31); Mean Corpuscular Volume 104 fL (80-94); Mean Platelet Volume 8.9 fL (7.4-10.4); Platelet Count 401 10^3/uL (150-450); Red Blood Count 4.25 10^6 /uL (4.18-5.48); Red Cell Distribution Width 14 % (10-15); Sodium 134 mmol/L (135-145); Total Protein 7.5 g/dL (6.4-8.9); White Blood Count 14.8 10^3/uL (3.5-10.8)
[2021-01-26 09:47] LABS: ALT 50 U/L (7-52); AST 62 U/L (13-39); Albumin/Globulin Ratio 0.8 (1-3); Alkaline Phosphatase 167 U/L (34-104); C Reactive Protein 298.74 mg/L (<8.01); Globulin 4.2 g/dL (2-4)
[2021-01-26 09:49] LABS: Troponin I 0.03 ng/mL (<0.03)
[2021-01-26] MEDS ORDERED: Iohexol 350 (CONTRAST) 500 ML MDV IV ONE (10:31)
[2021-01-26 12:39] LABS: Troponin I 0.04 ng/mL (<0.03)
[2021-01-26] MEDS ORDERED: Vancomycin 1,500 MG in NS 0.9% 250 ml 250 ML IVPB ONE (12:42)
[2021-01-26] MEDS ORDERED: Piperacillin/Tazobac ADVAN 3.375 GM in NS 0.9% 100 ml BAG 100 ML IV ONE (12:42)
[2021-01-26] MEDS ORDERED: Piperacillin/Tazobac 3.375 GM BAG ONE (12:50)
[2021-01-26] MEDS ORDERED: Vancomycin 1500 MG IV - x ONCE IVPB ONE (14:15)
[2021-01-26] MEDS ORDERED: Piperacillin/Tazobac ADVAN 3.375 GM in NS 0.9% 100 ml BAG 100 ML IV SCH (17:00)
[2021-01-26] MEDS: Piperacillin/Tazobac ADVAN 3.375 GM in NS 0.9% 100 ml BAG 100 ML IV SCH (17:31)
[2021-01-26] MEDS ORDERED: Vancomycin per Pharmacy 1 EA NOTE FOLLOW UP PRN (19:12)
[2021-01-27] MEDS: Vancomycin 1,750 MG in NS 0.9% 500 ml BAG 500 ML IVPB SCH ×2 (01:35→14:32)
[2021-01-27] MEDS: Piperacillin/Tazobac ADVAN 3.375 GM in NS 0.9% 100 ml BAG 100 ML IV SCH ×2 (04:03→08:41)
[2021-01-27] MEDS ORDERED: Pneumococcal Vac 23-Polyvalent IM ONE (09:00)
[2021-01-27] MEDS ORDERED: Lidocaine 2% PF 5 ML VIAL ONE (10:31)
[2021-01-27] MEDS ORDERED: Rocuronium 50 mg VIAL 10 mg/ml 5 ml VIAL (50 mg) ONE ×2 (10:31→10:32)
[2021-01-27] MEDS ORDERED: Propofol 10 MG/ML 20 ML BTL ONE (10:31)
[2021-01-27] MEDS ORDERED: fentaNYL 250 mcg/5 ml 50 MCG/ML 5 ml VIAL (250 MCG) ONE (10:34)
[2021-01-27] MEDS ORDERED: diPHENhydraMINE IV 50 MG/ML 1 ml VIAL (BENADRYL) IV PRN (10:38)
[2021-01-27] MEDS ORDERED: HYDROmorphone 1 MG/1 ML SYRINGE IV PRN (10:38)
[2021-01-27] MEDS ORDERED: Naloxone 0.4 mg VIAL 0.4 mg/ml 1 ml VIAL IV PRN (10:38)
[2021-01-27] MEDS ORDERED: Prochlorperazine 5 mg/ml 2 ml VIAL (10 mg) IV PRN (10:38)
[2021-01-27] MEDS ORDERED: Dexamethasone IV 4 MG/ML VIAL 1 ml VIAL ONE ×2 (11:13→11:24)
[2021-01-27] MEDS ORDERED: Ondansetron 4 mg VIAL 2 MG/ML 2 ml VIAL ONE (11:13)
[2021-01-27] MEDS ORDERED: Acetaminophen IV 1 GM/100ML 100 ML ONE (11:16)
[2021-01-27] MEDS ORDERED: HYDROmorphone 1 MG/1 ML SYRINGE ONE ×2 (11:58→13:02)
[2021-01-27] MEDS ORDERED: Phenylephrine 40 mcg/mL 10mL (400mcg) SYRINGE ONE (13:53)
[2021-01-27] MEDS: Cefepime 2 GM in Dextrose 2 GM/50 ML BAG IV SCH (17:35)
[2021-01-27] MEDS: oxyCODONE/Acetamin 5/325 mg TAB PO PRN (20:06)
[2021-01-28] MEDS: Cefepime 2 GM in Dextrose 2 GM/50 ML BAG IV SCH ×2 (00:53→08:43)
[2021-01-28] MEDS: Vancomycin 1,750 MG in NS 0.9% 500 ml BAG 500 ML IVPB SCH ×2 (01:36→13:30)
[2021-01-28] MEDS: oxyCODONE/Acetamin 5/325 mg TAB PO PRN ×2 (01:39→05:45)
[2021-01-28 07:09] LABS: Hematocrit 37 % (42-52); Hemoglobin 12.4 g/dL (14.0-18.0); Mean Corpuscular HGB Conc 33 g/dL (31-36); Mean Corpuscular Hemoglobin 35 pg (27-31); Mean Corpuscular Volume 104 fL (80-94); Mean Platelet Volume 9.7 fL (7.4-10.4); Platelet Count 446 10^3/uL (150-450); Red Cell Distribution Width 14 % (10-15); White Blood Count 17.5 10^3/uL (3.5-10.8)
[2021-01-28 07:10] LABS: ABS Lymphocytes 1.1 10^3/ul (1.0-4.8); ABS Monocytes 2.3 10^3/ul (0-0.8); ABS Neutrophils 14.1 10^3/ul (1.5-7.7); Lymphocyte % 6.2 %
[2021-01-28 08:54] LABS: Calcium 8.7 mg/dL (8.6-10.3); EGFR African American 103.8 (>60); EGFR Non-African American 85.8 (>60); Potassium 4.6 mmol/L (3.5-5.0)
[2021-01-28 09:59] LABS: C Reactive Protein 299.37 mg/L (<8.01)
[2021-01-28] MEDS ORDERED: Vancomycin Trough Check NOTE FOLLOW UP ONE (12:30)
[2021-01-29] MEDS: Vancomycin 1,750 MG in NS 0.9% 500 ml BAG 500 ML IVPB SCH ×2 (01:27→13:05)
[2021-01-29 06:54] LABS: Hematocrit 37 % (42-52); Hemoglobin 12.5 g/dL (14.0-18.0); Mean Corpuscular HGB Conc 34 g/dL (31-36); Mean Corpuscular Hemoglobin 35 pg (27-31); Mean Corpuscular Volume 103 fL (80-94); Mean Platelet Volume 9.2 fL (7.4-10.4); Platelet Count 453 10^3/uL (150-450); Red Blood Count 3.58 10^6 /uL (4.18-5.48); Red Cell Distribution Width 15 % (10-15); White Blood Count 19.3 10^3/uL (3.5-10.8)
[2021-01-29 07:14] LABS: Calcium 8.7 mg/dL (8.6-10.3); EGFR African American 114.1 (>60); EGFR Non-African American 94.3 (>60); Potassium 4.7 mmol/L (3.5-5.0)
[2021-01-29 07:41] LABS: ABS Basophils 0.1 10^3/ul (0-0.2); ABS Eosinophils 0.1 10^3/ul (0-0.6); ABS Lymphocytes 1.6 10^3/ul (1.0-4.8); ABS Monocytes 2.3 10^3/ul (0-0.8); ABS Neutrophils 15.2 10^3/ul (1.5-7.7); Eosinophil % 0.5 %; Lymphocyte % 8.5 %; Nucleated Red Blood Cells % 0.1
[2021-01-29] MEDS ORDERED: Buffered Lidocaine 1% SYRIN 1 ml INTRADERM ONE (07:52)
[2021-01-29 08:18] LABS: C Reactive Protein 160.44 mg/L (<8.01)
[2021-01-29] MEDS: oxyCODONE/Acetamin 5/325 mg TAB PO PRN (08:47)
[2021-01-29 11:55] VITALS: BP 142/66
== END 2021-01-29 15:45 | disposition home or self-care (01) | DRG 580 ==
LOC: ED 08:14 → SSU 14:38 → ED 16:10
PROVIDERS: ADMIT Surgery; ATTEND Surgery
PROC: O.GEI&D (2021-01-27 10:45)